=== PATIENT | male | born 1955 | race Caucasian/White ===

== ENCOUNTER 2020-08-21 11:09 | IRF | payer MEDICARE, MEDICAID, SELFPAY ==
--- NOTE | ~2020-08-21 | CT_ITS ---
EXAMINATION: CT brain wo con EXAM DATE: 08/24/2020 14:30 INDICATION: Visual changes. TECHNIQUE: Spiral CT of the head was performed without contrast. Axial, coronal and sagittal images were reviewed. The dose-length product (DLP) for this examination was 605.33 mGy-cm. The exposure w as tailored according to patient size, and iterative reconstruction (ASIR) was used as additional dos e reduction technique. There is no prior study for comparison. FINDINGS: There is no acute intraparenchymal hemorrhage. No evidence of intraparenchymal brain mass lesion. No evidence of acute infarction. Please note that initial head CT has limited sensitivity f or small or acute infarctions. There is mild periventricular and subcortical hypodensity, nonspecific but probably related to small vessel ischemic disease. There is ventricular prominence out of prop ortion to sulci which is suspected most likely central atrophy rather than hydrocephalus. Normal pre ssure hydrocephalus cannot be excluded (clinical triad ataxia/gait disturbance, dementia, urinary inc ontinence). There is intracranial carotid arteriosclerosis. There are no extra-axial collections. There is no mass effect or midline shift. Patient has had bilateral ocular lens surgery. Soft tiss ue is unremarkable. The visualized sinuses and mastoid air cells are well aerated. IMPRESSION: 1. No acute intracranial findings. 2. Chronic age related findings. Reviewed, dictated and finalized at location B. 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
--- NOTE | ~2020-08-21 | XR_ITS ---
EXAMINATION: XR abdomen/kub 1V EXAM DATE: 08/22/2020 15:46 INDICATION: Diarrhea with lower right quadrant pain. TECHNIQUE: Frontal projection(s) of the abdomen for interpretation. There is no prior study for reji webb. FINDINGS: There is moderate amount of colonic stool and gas. No small bowel dilation, nonobstructiv e bowel gas pattern. There are no suspicious calcifications identified. There is no organomegaly suspected. Mild to moderate bony degenerative changes. Lung bases unremarkable. Cardiac a stomach/A ICD lead. Sternotomy wires. IMPRESSION: Unremarkable abdomen x-ray exam. Reviewed, dictated and finalized at location B. 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
--- NOTE | ~2020-08-21 | XR_ITS ---
EXAMINATION: XR wrist RT 2V DATE: 08/27/2020 13:09 INDICATION: Right wrist pain and swelling TECHNIQUE: Posteroanterior and lateral views of the right wrist were obtained. COMPARISON: none FINDINGS: Bone alignment is normal. Likely old healed fracture of the fifth metacarpal diaphysis. No acute frac ture. Mild osteoarthritis characterized by mild nonuniform joint space narrowing and/or small margina l osteophytes at the first carpometacarpal and several interphalangeal joints. Soft tissue swelling a long the dorsal/ulnar aspect of the right wrist and carpus. IMPRESSION: 1. Mild polyarticular osteoarthritis at the right hand. No acute osseous abnormality. Reviewed, dictated and finalized at location B. IMPRESSION: 1. Mild polyarticular osteoarthritis at the right hand. No acute osseous abnorm ality.
--- NOTE | 2020-08-21 11:16 | ADMGEN ---
This patient, Salvatore Elmore, was admitted to [facility] Room 222-01. Patient/family oriented to hospital policies and general routines including ID bracelet, bed and alarms, visiting hours, pain management, procedures, bathroom and other care routines, personal items, smoking policy, room service/diet, and visiting hours. Information on how to activate the Rapid Response Team has been discussed. Patient/Family are encouraged to report perceived risks to care and to ask questions if they do not understand what they are told or what they should do.
[2020-08-21 11:39] VITALS: BMI 36.3
[2020-08-21 11:40] VITALS: BP 95/59; PULSE 79; RESP 18; TEMP 35.9; O2SAT 97
[2020-08-21 12:31] LABS: Glucose Point of Care 151 (65-105)
[2020-08-21] MEDS: HEPARIN SODIUM 5,000 UNITS/ML VIAL 5000 UNITS SUB-Q ×2 (14:00→21:13)
--- NOTE | 2020-08-21 16:05 | WPDREHABHP ---
H&P: HPI History of Present Illness Date/Time: 08/21/20 16:05HISTORY OF PRESENT ILLNESS: The patient's primary rehab impairment category is amputation lower extremity The etiologic diagnosis is right lower extremity Charcot foot with nonhealing wound status post right below the knee amputation I saw this patient [id number] on 08/21/2020 4:08 p.m. The patient is a 64-year-old male with known medical history of hypertension, coronary artery disease status post CABG in 01/2017, diabetes mellitus with peripheral neuropathy and retinopathy, peripheral arterial disease with multiple interventions, right Charcot foot with nonhealing ulcers. Patient had a recent hospitalization in May of 2020 for acute heart failure, diabetic foot ulcer with MSSA bacteremia, right foot abscess with osteomyelitis. He was discharged on 05/31/2020 on IV ceftriaxone 2 g daily times 42 days to end on 07/12/2020. Patient presented to [facility] on 08/06/2020 with severe right foot pain was found to have an ulcer on the dorsal aspect of the right foot that was nonhealing. Patient was also found to have volume overload with bibasilar crackles, scrotal swelling and bilateral lower extremity swelling. Patient developed acute on chronic kidney injury with creatinine elevated to 1.7. He was started on IV Lasix 80 mg b.i.d.. Right foot x-ray showed lucency and destruction of the base of the 5th metatarsal compatible with progressive osteomyelitis and cellulitis. Dr. Ram was consulted and placed the patient on IV vancomycin and Unasyn. Right lower extremity CT revealed progression of the osteomyelitis to the 4th and 5th tarsometatarsal articulation and metatarsal bones. Podiatry and vascular surgeons were consulted on the patient agreed on surgical intervention. On 08/12/2020 his blood culture showed no growth at day 5. Wound cultures grew Pseudomonas aeruginosa is. Patient was then switched to IV cefepime and Unasyn was discontinued. On 08/14/2020 the patient underwent a right below-knee amputation by Dr. Sutton postoperatively patient had acute postop pain, acute blood loss anemia, hypokalemia, hyponatremia, hyperglycemia, acute on chronic kidney disease, lower extremity edema and volume overload, episodes of hypotension, constipation. Blood pressures have been running on the low side of 95/60 and has been managed with medication LDL was suboptimally controlled and add Avastin was increased to 80 mg daily Hemoglobin A1c is 6.6. Patient is being discharged on aspirin and Plavix for the DVT prophylaxis until assessed further after rehab COVID: The patient has not traveled outside the [place] or had contact with someone who is ill and his travel outside the [place] in the past 21 days. Patient has not traveled to an area of the [place] that his experiencing no transmission of the Coronavirus and has not had close personal contact with anyone that has. The patient does not have a fever. The patient is not experiencing lower respiratory illness symptoms. The patient does however have COPD and asthma at baseline the patient tested negative for COVID on 08/13/2020 therapy was initiated the acute care facility and the patient transferred to us from the [facility] on 08/21/2020 Therapy was initiated at the acute care facility and the patient transferred to us from [facility] on FALLS OR SURGERIES: The patient has had major surgeries in the 100 days prior to admission. They had no falls in the past year. They had no falls with injury in the past year. PAST MEDICAL HISTORY: cardiomyopathy, coronary artery disease status post CABG on 02/01/2017, hypertension, diabetes mellitus type 2, diabetic retinopathy, diabetic neuropathy, peripheral arterial disease with multiple interventions, right Charcot foot with ulcer, impaired left ventricular systolic function secondary to ischemic cardiomyopathy with ejection fraction of 25-30
[2020-08-21 16:28] LABS: Glucose Point of Care 152 (65-105)
[2020-08-21 16:50] LABS: Glucose Point of Care 153 (65-105)
[2020-08-21] MEDS: ISOSORBIDE DINITRATE 10 MG TABLET PO (17:06)
[2020-08-21] MEDS: FUROSEMIDE 80 MG TABLET PO (17:07)
[2020-08-21 20:32] VITALS: BP 114/65; PULSE 92; RESP 24; TEMP 36.5; O2SAT 96
[2020-08-21 20:33] VITALS: PULSE 96
[2020-08-21] MEDS: METOPROLOL TARTRATE 50 MG TAB PO (20:33)
[2020-08-21] MEDS: PREGABALIN (*CRX) 75 MG CAPSULE 150 MG PO (20:36)
[2020-08-21 20:48] LABS: Glucose Point of Care 190 (65-105)
[2020-08-22 04:52] LABS: Basophils Absolute Auto 0.1 K/mm3 (0.0-0.1); Basophils Percent Auto 0.4 % (0.2-1.2); Eosinophils Absolute Auto 0.4 K/mm3 (0-0.3); Hematocrit 33.2 % (42.0-52.0); Hemoglobin 10.8 g/dL (14.0-18.0); Immature Granulocyte Absolute 0.14 K/mm3 (0.00-0.031); Lymphocytes Absolute Auto 1.78 K/mm3 (0.9-3.2); Lymphocytes Percent Auto 13.2 % (18.3-44.2); Mean Corpuscular HGB Conc 32.5 g/dl (32-36); Mean Corpuscular Hemoglobin 24.7 pg (26-34); Mean Corpuscular Volume 75.8 fl (80-100); Monocytes Absolute Auto 1.3 K/mm3 (0.1-0.6); Monocytes Percent Auto 9.4 % (2.6-8.5); Neutrophils Absolute Auto 9.8 K/mm3 (1.3-6.7); Platelet Count Result 392 k/mm3 (150-375); Red Blood Count 4.38 M/mm3 (4.6-6.20); Red Cell Distribution Width 16.2 % (11.5-14.5); White Blood Count 13.5 K/mm3 (4.5-10.0)
[2020-08-22 05:14] LABS: Alanine Aminotransferase 15 U/L (4-50); Albumin Level 3.8 g/dL (3.5-5.1); Alkaline Phosphatase 98 U/L (38-126); Anion Gap 7 mmol/L (8-16); Aspartate Amino Transferase 25 U/L (17-59); Bilirubin,Total 0.6 mg/dL (0.2-1.3); Blood Urea Nitrogen 47 mg/dL (9-20); Calcium 9.3 mg/dL (8.4-10.2); Carbon Dioxide 33 mmol/L (22-30); Chloride 91 mmol/L (98-107); Estimated CRCL calculation 63 ml/min; Estimated Glomerular Filt Rate 56; Glucose 140 mg/dL (75-110); Potassium 3.8 mmol/L (3.4-5.0); Sodium 131 mmol/L (137-145)
[2020-08-22 06:00] VITALS: BP 108/64; PULSE 80; RESP 18; TEMP 36.8; O2SAT 96
[2020-08-22] MEDS: HEPARIN SODIUM 5,000 UNITS/ML VIAL 5000 UNITS SUB-Q ×3 (06:00→21:06)
[2020-08-22 06:11] LABS: Glucose Point of Care 137 (65-105)
[2020-08-22 08:16] VITALS: PULSE 80
[2020-08-22] MEDS: ASPIRIN 81 MG ENTERIC TABLET PO (08:16)
[2020-08-22] MEDS: lisinopriL 5 MG TABLET PO (08:16)
[2020-08-22] MEDS: FAMOTIDINE 20 MG TABLET PO (08:16)
[2020-08-22] MEDS: FUROSEMIDE 80 MG TABLET PO (08:16)
[2020-08-22] MEDS: METOPROLOL TARTRATE 50 MG TAB PO ×2 (08:16→21:05)
[2020-08-22] MEDS: SPIRONOLACTONE 25 MG TABLET PO (08:16)
[2020-08-22] MEDS: CLOPIDOGREL BISULFATE 75 MG TABLET PO (08:16)
[2020-08-22] MEDS: ATORVASTATIN 40 MG TABLET 80 MG PO (08:17)
[2020-08-22] MEDS: ACETAMINOPHEN 325 MG TABLET 650 MG PO ×2 (08:54→18:33)
[2020-08-22] MEDS: ISOSORBIDE DINITRATE 10 MG TABLET PO ×2 (09:57→16:52)
[2020-08-22 10:47] VITALS: BMI 36.3
[2020-08-22] MEDS: TOLNAFTATE 1% POWDER 45 GM BTL 1 APPLIC TOPICAL ×2 (10:48→21:06)
--- NOTE | 2020-08-22 11:35 | PCNSR ---
On 08/22/20, the student, Tonya Cohn, provided care and [facility]. I have reviewed the student's documentation and agree with the findings.
[2020-08-22 11:48] LABS: Glucose Point of Care 196 (65-105)
[2020-08-22 13:00] VITALS: BMI 10.0
[2020-08-22 14:00] VITALS: BP 101/55; PULSE 82; RESP 20; TEMP 36.4; O2SAT 98
--- NOTE | 2020-08-22 14:37 | WPDNEURORHBP ---
Subjective Date/time seen: 08/22/20 14:37 Patient has been seen throughout the day. At noon today patient was experiencing right visual blurriness and dizziness Review of Systems Review of Systems: All systems reviewed & are unremarkable except as noted in HPI and below Functional Status Transfers Ability Ability to Transfer In/Out of Chair: Maximum Assistance X 2 Exam Narrative: Exam Narrative: Patient demonstrates right eye ptosis this was present on admit.. External ocular muscles are intact. pupils are react to light and accommodation. Neck is supple. Speech is fluent. heart rate and rhythm is regular. Lungs are clear to auscultation abdomen is soft positive bowel sounds bilateral upper extremity strength revealed bilateral rotator cuff arthropathy. Distal strength is 4-. Left lower extremity strength reveals proximal weakness of 3+ knee 3+ ankle 3+. Left lower extremity fatigues quickly. During stance phase left lower extremity is in flexion at the hip and knee. Patient is unable to fully extend left lower extremity to assist with standing. Right stump was visualized today. Multiple sutures were present. Approximation of incision was not present at the midline of the incision. transfers are max assistance 2 to moderate assistance of 2 no gait has been attempted Objective Data Vital Signs Vital Signs: Vital Signs - 24 hr 08/21/20 20:32 08/21/20 20:33 08/22/20 06:00 Temperature 36.5 C 36.8 C Pulse Rate 92 96 80 Respiratory Rate 24 H 18 Blood Pressure 114/65 108/64 Pulse Oximetry 96 96 08/22/20 08:16 08/22/20 14:00 Temperature 36.4 C L Pulse Rate 80 82 Respiratory Rate 20 Blood Pressure 101/55 L Pulse Oximetry 98 Intake/Output Intake/Output: Intake & Output 08/19/20 08/20/20 08/21/20 08/22/20 23:59 23:59 23:59 23:59 Intake Total 240 840 Balance 240 840 Meds/Results Medications: Active Medications Generic Name Dose Route Start Last Admin Trade Name Freq PRN Reason Stop Dose Admin Acetaminophen 650 mg 08/21/20 14:06 08/22/20 08:54 Acetaminophen 325 Mg Tablet PO 650 mg Q6H PRN Administration Fever Or Pain Hydrocodone Bitart/Acetaminophen 2 tab 08/21/20 14:06 Hydrocodone/Acetaminophen (*Crx) 5-325 Mg Tablet PO Q4H PRN Pain, Moderate Aspirin 81 mg 08/22/20 09:00 08/22/20 08:16 Aspirin 81 Mg Enteric Tablet PO 81 mg DAILY [facility] Administration Atorvastatin Calcium 80 mg 08/22/20 09:00 08/22/20 08:17 Atorvastatin 40 Mg Tablet PO 80 mg DAILY [facility] Administration Benzonatate 100 mg 08/21/20 14:06 Benzonatate 100 Mg Capsule PO Q8H PRN Cough Bisacodyl 10 mg 08/21/20 14:06 Bisacodyl 5 Mg Tablet Ec PO DAILY PRN Constipation Clopidogrel Bisulfate 75 mg 08/22/20 09:00 08/22/20 08:16 Clopidogrel Bisulfate 75 Mg Tablet PO 75 mg DAILY [facility] Administration Dextrose 12.5 gm 08/21/20 14:07 Dextrose 50% 25 Gm/50 Ml Syringe IV PUSH PRN PRN Hypoglycemia Protocol Docusate Sodium 100 mg 08/21/20 14:06 Docusate Sodium 100 Mg Capsule PO Q12H PRN Constipation Famotidine 20 mg 08/22/20 09:00 08/22/20 08:16 Famotidine 20 Mg Tablet PO 20 mg DAILY [facility]UC Administration Furosemide 80 mg 08/21/20 17:00 08/22/20 08:16 Furosemide 80 Mg Tablet PO 80 mg BID [facility] Administration Glucagon 1 mg 08/21/20 14:07 Glucagon For Inj 1 Mg Vial IM PRN PRN Hypoglycemia Protocol Glucose 15 gm 08/21/20 14:07 Glucose Oral Gel 15 Gm Of Glucse In 37.5 Gm Tube PO PRN PRN Hypoglycemia Protocol Heparin Sodium (Porcine) 5,000 units 08/21/20 14:00 08/22/20 14:20 Heparin Sodium 5,000 Units/Ml Vial SUB-Q 5,000 units Q8HR PHUC Administration Dextrose 1,000 mls @ 100 mls/hr 08/21/20 14:07 Dextrose 5% 1,000 Ml IVPB PRN PRN Hypoglycemia Protocol Insulin Aspart 4 - 8 units 08/21/20 17:00 08/22
[2020-08-22 15:36] LABS: Anion Gap 9 mmol/L (8-16); Blood Urea Nitrogen 51 mg/dL (9-20); Calcium 8.7 mg/dL (8.4-10.2); Carbon Dioxide 32 mmol/L (22-30); Chloride 90 mmol/L (98-107); Estimated CRCL calculation 59 ml/min; Estimated Glomerular Filt Rate 51; Glucose 175 mg/dL (75-110); Potassium 4.1 mmol/L (3.4-5.0); Sodium 131 mmol/L (137-145)
[2020-08-22 16:44] LABS: Glucose Point of Care 188 (65-105)
[2020-08-22 20:00] VITALS: PULSE 98; RESP 16; O2SAT 96
[2020-08-22 21:05] VITALS: PULSE 99
[2020-08-22] MEDS: PREGABALIN (*CRX) 75 MG CAPSULE 150 MG PO (21:06)
[2020-08-22 21:34] VITALS: BP 141/85; PULSE 98; RESP 16; TEMP 36.3; O2SAT 96
[2020-08-22 22:16] LABS: Glucose Point of Care 212 (65-105)
[2020-08-23] VITALS (7 sets, daily range): BP systolic 93–124; BP diastolic 47–70; PULSE 78–96; RESP 18–20; TEMP 35.9–36.2; O2SAT 97–100
[2020-08-23] MEDS: HEPARIN SODIUM 5,000 UNITS/ML VIAL 5000 UNITS SUB-Q ×3 (05:15→21:14)
[2020-08-23 06:59] LABS: Glucose Point of Care 157 (65-105)
[2020-08-23] MEDS: ACETAMINOPHEN 325 MG TABLET 650 MG PO ×2 (07:55→16:55)
[2020-08-23] MEDS: ATORVASTATIN 40 MG TABLET 80 MG PO (08:35)
[2020-08-23] MEDS: METOPROLOL TARTRATE 50 MG TAB PO ×2 (08:36→21:13)
[2020-08-23] MEDS: FAMOTIDINE 20 MG TABLET PO (08:37)
[2020-08-23] MEDS: lisinopriL 5 MG TABLET PO (08:37)
[2020-08-23] MEDS: FUROSEMIDE 80 MG TABLET PO (08:37)
[2020-08-23] MEDS: SPIRONOLACTONE 25 MG TABLET PO (08:37)
[2020-08-23] MEDS: CLOPIDOGREL BISULFATE 75 MG TABLET PO (08:37)
[2020-08-23] MEDS: ASPIRIN 81 MG ENTERIC TABLET PO (08:38)
[2020-08-23] MEDS: ISOSORBIDE DINITRATE 10 MG TABLET PO ×2 (08:38→16:55)
[2020-08-23] MEDS: polyethylene glycoL 3350 17 GM POWD.PACK PO (08:38)
[2020-08-23] MEDS: TOLNAFTATE 1% POWDER 45 GM BTL 1 APPLIC TOPICAL ×2 (08:41→21:18)
--- NOTE | 2020-08-23 09:22 | RPD ---
INDIVIDUALIZED PLAN OF CARE FOR Salvatore Elmore Brief Synthesis of Pre-Admission Screen, Post-Admission Evaluation and Therapy Evaluations: The patient presents to rehab with right LE Charcot foot with non-healing wound s/p right [id number] amputation. Comorbidities include osteomyelitis right foot, cardiomyopathy, CAD s/p CABGx4, systolic heart failure with EF 25-30%, CHF, hypertension, diabetes mellitus type 2, peripheral arterial disease, defibrillator placement, scrotal edema, renal insufficiency, hyperlipidemia, defibrillator placement, scrotal edema, mitral valve regurgitation, asthma, COPD, obstructive sleep apnea (noncompliant w/CPAP), hepatitis, chronic kidney disease, enlarged prostate, prostate cancer, osteoarthritis, rheumatoid arthritis, diabetic peripheral neuropathy, obesity, acute kidney injury, and constipation. The complexity of the patient's medical management, nursing, and therapy needs require an inpatient rehab hospital stay with a physician-led interdisciplinary team approach. The patient?s needs will be best met in an intensive program vs. at a lower level of care. The patient requires physician services for medical oversight, management of post-op complications in the setting of present comorbidities, and pain management. Post-op complications have included acute postoperative pain, acute blood loss anemia, hypokalemia, hyponatremia, hyperglycemia, acute kidney injury in the setting of chronic kidney disease, LE edema/volume overload, and episodes of hypotension. The patient requires nursing services for anticoagulation therapy, diabetes training, DVT prophylactics, possible IV administration, infection protection, medication management and education, pressure relief, and wound care. Deficits include:24-Hour Rehab Nursing Care, Nutrition Services, Occupational Therapy, Physical Therapy, Physician, Prosthetics/Orthotics, Respiratory Therapy, [employer], and Wound Care. [employer]/Case Management for: Discharge Planning and Patient/Family Counseling Physical Therapy: 5 days per week for 90 minutes. Treatments may include: Therapeutic Exercise, Gait Training, Neuromuscular Re-education, Transfer Training, Community Reintegration, Bed Mobility, Patient/Family Education, Wheelchair Mobility Group Therapy/Concurrent Therapy Rationales: -Improve attention span during functional activities in a distracted environment. -Enhance problem solving and/or adequate judgment skills during functional activities in a distracted environment. -Promote increased safety awareness in a distracted environment to reduce fall risk with functional tasks, transfers, and ambulation to allow a more safe, self-sufficient return to the home environment. -Improve dynamic balance skills to promote safety and independence with functional activities in a distracted environment for maximum gain. Occupational Therapy: 5 days per week for 90 minutes. Treatments may include: Therapeutic Exercise, Therapeutic Activity, Cognitive Training, Self-Care Transfer Training, Community Reintegration, Home Management, Patient/Family Education, Wheelchair Mobility Training, Energy Conservation Training Group Therapy/Concurrent Therapy Rationales: -Allow therapist to observe and teach generalization and carry-over of skills learned in individual therapy. -Enhance problem solving and sequencing skills during therapeutic activities in a distracted environment. -Promote increased safety awareness in a realistic setting to reduce fall risk with functional tasks due to visual and verbal distractions. -Increase functional level with ADLs, ADL transfers and use of adaptive equipment through therapeutic activities with others while promoting safety to allow a more safe, self-sufficient return home. Medical Prognosis: Good Anticipated Length of Stay: 14 days Rehab Goals: Eating Goal: 06-Independent Oral Hygiene Goal: 06-Independent Toileting Hygiene Goal: 03-Partial/Moderate Assistance
--- NOTE | 2020-08-23 10:15 | WPDNEURORHBP ---
Subjective Date/time seen: 08/23/20 10:15 Review of Systems Review of Systems: All systems reviewed & are unremarkable except as noted in HPI and below Constitutional: Constitutional: Reports weakness Genitourinary: Genitourinary: Reports as per HPI Musculoskeletal: Musculoskeletal: Reports atrophy and Reports muscle weakness Neurologic: Reports system reviewed and no additional complaints, except as documented and Reports weakness Functional Status Transfers Ability Ability to Transfer In/Out of Chair: Maximum Assistance X 2 Exam Narrative: Exam Narrative: Patient demonstrates right eye ptosis this was present on admit.. External ocular muscles are intact. pupils are react to light and accommodation. Neck is supple. Speech is fluent. heart rate and rhythm is regular. Lungs are clear to auscultation abdomen is soft positive bowel sounds bilateral upper extremity strength revealed bilateral rotator cuff arthropathy. Distal strength is 4-. Left lower extremity strength reveals proximal weakness of 3+ knee 3+ ankle 3+. Left lower extremity fatigues quickly. During stance phase left lower extremity is in flexion at the hip and knee. Patient is unable to fully extend left lower extremity to assist with standing. Right stump was visualized today. Multiple sutures were present. Approximation of incision was not present at the midline of the incision. transfers are max assistance 2 to moderate assistance of 2 no gait has been attempted Objective Data Vital Signs Vital Signs: Vital Signs - 24 hr 08/22/20 14:00 08/22/20 20:00 08/22/20 21:05 Temperature 36.4 C L Pulse Rate 82 98 99 Respiratory Rate 20 16 Blood Pressure 101/55 L Pulse Oximetry 98 96 08/22/20 21:34 08/23/20 06:00 08/23/20 08:36 Temperature 36.3 C L 36.1 C L Pulse Rate 98 88 88 Respiratory Rate 16 20 Blood Pressure 141/85 H 117/70 Pulse Oximetry 96 97 Intake/Output Intake/Output: Intake & Output 08/20/20 08/21/20 08/22/20 08/23/20 23:59 23:59 23:59 23:59 Intake Total 240 1200 240 Balance 240 1200 240 Meds/Results Medications: Active Medications Generic Name Dose Route Start Last Admin Trade Name Freq PRN Reason Stop Dose Admin Acetaminophen 650 mg 08/21/20 14:06 08/23/20 07:55 Acetaminophen 325 Mg Tablet PO 650 mg Q6H PRN Administration Fever Or Pain Hydrocodone Bitart/Acetaminophen 2 tab 08/21/20 14:06 Hydrocodone/Acetaminophen (*Crx) 5-325 Mg Tablet PO Q4H PRN Pain, Moderate Aspirin 81 mg 08/22/20 09:00 08/23/20 08:38 Aspirin 81 Mg Enteric Tablet PO 81 mg DAILY [facility] Administration Atorvastatin Calcium 80 mg 08/22/20 09:00 08/23/20 08:35 Atorvastatin 40 Mg Tablet PO 80 mg DAILY [facility] Administration Benzonatate 100 mg 08/21/20 14:06 Benzonatate 100 Mg Capsule PO Q8H PRN Cough Bisacodyl 10 mg 08/21/20 14:06 Bisacodyl 5 Mg Tablet Ec PO DAILY PRN Constipation Clopidogrel Bisulfate 75 mg 08/22/20 09:00 08/23/20 08:37 Clopidogrel Bisulfate 75 Mg Tablet PO 75 mg DAILY [facility] Administration Dextrose 12.5 gm 08/21/20 14:07 Dextrose 50% 25 Gm/50 Ml Syringe IV PUSH PRN PRN Hypoglycemia Protocol Docusate Sodium 100 mg 08/21/20 14:06 Docusate Sodium 100 Mg Capsule PO Q12H PRN Constipation Famotidine 20 mg 08/22/20 09:00 08/23/20 08:37 Famotidine 20 Mg Tablet PO 20 mg DAILY [facility]UC Administration Furosemide 80 mg 08/23/20 09:00 08/23/20 08:37 Furosemide 80 Mg Tablet PO 80 mg DAILY [facility] Administration Glucagon 1 mg 08/21/20 14:07 Glucagon For Inj 1 Mg Vial IM PRN PRN Hypoglycemia Protocol Glucose 15 gm 08/21/20 14:07 Glucose Oral Gel 15 Gm Of Glucse In 37.5 Gm Tube PO PRN PRN Hypoglycemia Protocol Heparin Sodium (Porcine) 5,000 units 08/21/20 14:00 08/23/20 05:15 Heparin Sodium 5,000 Units/Ml Vial SUB-Q 5,00
[2020-08-23 11:51] LABS: Glucose Point of Care 190 (65-105)
[2020-08-23 13:09] LABS: Basophils Absolute Auto 0.1 K/mm3 (0.0-0.1); Basophils Percent Auto 0.5 % (0.2-1.2); Eosinophils Absolute Auto 0.5 K/mm3 (0-0.3); Eosinophils Percent Auto 3.5 % (0-4.4); Hematocrit 33.1 % (42.0-52.0); Hemoglobin 10.6 g/dL (14.0-18.0); Immature Granulocyte Absolute 0.14 K/mm3 (0.00-0.031); Lymphocytes Absolute Auto 1.62 K/mm3 (0.9-3.2); Lymphocytes Percent Auto 11.4 % (18.3-44.2); Mean Corpuscular Hemoglobin 25.1 pg (26-34); Mean Corpuscular Volume 78.3 fl (80-100); Mean Platelet Volume 11.4 fl (7.4-10.4); Monocytes Absolute Auto 1.2 K/mm3 (0.1-0.6); Monocytes Percent Auto 8.6 % (2.6-8.5); Neutrophils Absolute Auto 10.7 K/mm3 (1.3-6.7); Platelet Count Result 447 k/mm3 (150-375); Red Blood Count 4.23 M/mm3 (4.6-6.20); Red Cell Distribution Width 16.5 % (11.5-14.5); White Blood Count 14.2 K/mm3 (4.5-10.0)
[2020-08-23 13:32] LABS: Alanine Aminotransferase 19 U/L (4-50); Albumin Level 3.8 g/dL (3.5-5.1); Alkaline Phosphatase 90 U/L (38-126); Anion Gap 10 mmol/L (8-16); Aspartate Amino Transferase 30 U/L (17-59); Bilirubin,Total 0.5 mg/dL (0.2-1.3); Blood Urea Nitrogen 45 mg/dL (9-20); Calcium 9.1 mg/dL (8.4-10.2); Carbon Dioxide 29 mmol/L (22-30); Chloride 94 mmol/L (98-107); Estimated CRCL calculation 74 ml/min; Estimated Glomerular Filt Rate > 60; Glucose 213 mg/dL (75-110); Potassium 3.9 mmol/L (3.4-5.0); Sodium 133 mmol/L (137-145)
--- NOTE | 2020-08-23 14:09 | WPDNEURORHBP ---
Subjective Date/time seen: 08/23/20 14:09 patient complains of blurred vision to the right eye. Patient is inconsistent with his responses since admission. Review of Systems Review of Systems: Narrative: Patient missed to blurred vision of the right eye and ongoing dizziness. Patient denies chest pain or shortness of breath. Patient continues to have complaints of incontinence of bowel. Functional Status Transfers Ability Ability to Transfer In/Out of Chair: Maximum Assistance X 2 Exam Narrative: Exam Narrative: Head is normocephalic right eye ptosis fluctuates throughout the day. Cognition is variable. Will seek speech evaluation for cognition. Speech is fluent. Heart rate and rhythm is regular. Lungs are clear to auscultation. Abdomen is obese with positive bowel sounds and incontinence of bowel. Bilateral upper extremity strength are 4+ out of 5 and left lower extremity strength is 5/5. During functional transfers patient has poor body awareness and does not utilize his upper extremities or his left lower extremities to assist in sliding board transfers. Sitting balance is good. Objective Data Vital Signs Vital Signs: Vital Signs - 24 hr 08/22/20 20:00 08/22/20 21:05 08/22/20 21:34 Temperature 36.3 C L Pulse Rate 98 99 98 Respiratory Rate 16 16 Blood Pressure 141/85 H Pulse Oximetry 96 96 08/23/20 06:00 08/23/20 08:36 08/23/20 11:00 Temperature 36.1 C L Pulse Rate 88 88 91 Respiratory Rate 20 Blood Pressure 117/70 93/47 L Pulse Oximetry 97 98 Intake/Output Intake/Output: Intake & Output 08/20/20 08/21/20 08/22/20 08/23/20 23:59 23:59 23:59 23:59 Intake Total 240 1200 480 Balance 240 1200 480 Meds/Results Medications: Active Medications Generic Name Dose Route Start Last Admin Trade Name Freq PRN Reason Stop Dose Admin Acetaminophen 650 mg 08/21/20 14:06 08/23/20 07:55 Acetaminophen 325 Mg Tablet PO 650 mg Q6H PRN Administration Fever Or Pain Hydrocodone Bitart/Acetaminophen 2 tab 08/21/20 14:06 Hydrocodone/Acetaminophen (*Crx) 5-325 Mg Tablet PO Q4H PRN Pain, Moderate Aspirin 81 mg 08/22/20 09:00 08/23/20 08:38 Aspirin 81 Mg Enteric Tablet PO 81 mg DAILY [facility] Administration Atorvastatin Calcium 80 mg 08/22/20 09:00 08/23/20 08:35 Atorvastatin 40 Mg Tablet PO 80 mg DAILY [facility] Administration Benzonatate 100 mg 08/21/20 14:06 Benzonatate 100 Mg Capsule PO Q8H PRN Cough Bisacodyl 10 mg 08/21/20 14:06 Bisacodyl 5 Mg Tablet Ec PO DAILY PRN Constipation Clopidogrel Bisulfate 75 mg 08/22/20 09:00 08/23/20 08:37 Clopidogrel Bisulfate 75 Mg Tablet PO 75 mg DAILY [facility]UC Administration Dextrose 12.5 gm 08/21/20 14:07 Dextrose 50% 25 Gm/50 Ml Syringe IV PUSH PRN PRN Hypoglycemia Protocol Docusate Sodium 100 mg 08/21/20 14:06 Docusate Sodium 100 Mg Capsule PO Q12H PRN Constipation Famotidine 20 mg 08/22/20 09:00 08/23/20 08:37 Famotidine 20 Mg Tablet PO 20 mg DAILY [facility]UC Administration Furosemide 80 mg 08/23/20 09:00 08/23/20 08:37 Furosemide 80 Mg Tablet PO 80 mg DAILY [facility] Administration Glucagon 1 mg 08/21/20 14:07 Glucagon For Inj 1 Mg Vial IM PRN PRN Hypoglycemia Protocol Glucose 15 gm 08/21/20 14:07 Glucose Oral Gel 15 Gm Of Glucse In 37.5 Gm Tube PO PRN PRN Hypoglycemia Protocol Heparin Sodium (Porcine) 5,000 units 08/21/20 14:00 08/23/20 05:15 Heparin Sodium 5,000 Units/Ml Vial SUB-Q 5,000 units Q8HR [facility] Administration Dextrose 1,000 mls @ 100 mls/hr 08/21/20 14:07 Dextrose 5% 1,000 Ml IVPB PRN PRN Hypoglycemia Protocol Insulin Aspart 4 - 8 units 08/21/20 17:00 08/23/20 12:00 Insulin Aspart (*Bkc) 100 Units/Ml SUB-Q Not Given TIDWM [facility] Protocol Isosorbide Dinitrate 10 mg 08/21/20 17:00 08/23/20 08:38 Isosorbide
--- NOTE | 2020-08-23 14:35 | WPDNEURCNPN ---
Assessment and Plan Assessment and plan (1) Blurred vision: Code(s): H53.8 - Other visual disturbances Status: Acute Additional Plan complaints of blurred vision over the last 24 hours even though patient has ongoing history of diabetic retinopathy and has been the under the care of the conservation assistant because of the recent complaints MRI of the brain will be obtained to rule out the possibility of silent occipital stroke before any further recommendations are made Consult date: 08/23/20 Time Seen: 14:30 HPI: Salvatore Elmore is a 64 year old male has been admitted to the rehab floor for amputation of left lower extremity in addition to the comorbid conditions of 1. Hypertension 2. Coronary artery disease 3. CABG in January of 2017 4. Diabetes mellitus 5. Peripheral neuropathy and 6. Retinopathy . neuro consultation has been obtained because patient has been complaining over the last 24 to 36 hours somewhat blurred vision Review of Systems Review of Systems: All systems reviewed & are unremarkable except as noted in HPI and below PMFSH Family History Family History Father Acute myocardial infarction Congestive heart failure Hypertension Sibling Acute myocardial infarction Prostate carcinoma Mother Acute myocardial infarction Congestive heart failure Hypertension Other Family history of cardiovascular disease Family history of obesity Social History Social History Smoking status: Never smoker Second hand tobacco smoke exposure: No Alcohol intake: former Substance use: never Substance use type: does not use Spiritual care concerns: No Meds Home Medications and Allergies Home Medications Medication Instructions Recorded Confirmed Type acetaminophen 650 mg PO Q6H PRN 08/21/20 08/21/20 History aspirin 81 mg PO DAILY 08/21/20 08/21/20 History atorvastatin 80 mg PO DAILY 08/21/20 08/21/20 History benzonatate 100 mg PO Q8H PRN 08/21/20 08/21/20 History bisacodyl 10 mg PO DAILY PRN 08/21/20 08/21/20 History clopidogrel 75 mg PO DAILY 08/21/20 08/21/20 History docusate sodium 100 mg PO Q12H PRN 08/21/20 08/21/20 History famotidine 20 mg PO DAILY 08/21/20 08/21/20 History furosemide 80 mg PO BID 08/21/20 08/21/20 History heparin (porcine) 5,000 unit SUBCUT Q8H 08/21/20 08/21/20 History hydrocodone-acetaminophen 2 tablet PO Q4H PRN 08/21/20 08/21/20 History isosorbide dinitrate 10 mg PO BID 08/21/20 08/21/20 History lisinopril 5 mg PO DAILY 08/21/20 08/21/20 History metoprolol tartrate 50 mg PO Q12H 08/21/20 08/21/20 History ondansetron 4 mg PO Q6H PRN 08/21/20 08/21/20 History polyethylene glycol 3350 17 g PO DAILY PRN 08/21/20 08/21/20 History pregabalin 150 mg PO HS 08/21/20 08/21/20 History spironolactone 25 mg PO DAILY 08/21/20 08/21/20 History Allergies Allergy/AdvReac Type Severity Reaction Status Date / Time Sulfa (Sulfonamide Allergy Unknown Verified 08/21/20 11:20 Antibiotics) sulfamethoxazole Allergy Unknown Verified 08/21/20 18:42 [From Bactrim] trimethoprim [From Bactrim] Allergy Unknown Verified 08/21/20 18:42 Vital Signs Vital Signs - 24 hr 08/22/20 20:00 08/22/20 21:05 08/22/20 21:34 Temperature 36.3 C L Pulse Rate 98 99 98 Respiratory Rate 16 16 Blood Pressure 141/85 H Pulse Oximetry 96 96 08/23/20 06:00 08/23/20 08:36 08/23/20 11:00 Temperature 36.1 C L Pulse Rate 88 88 91 Respiratory Rate 20 Blood Pressure 117/70 93/47 L Pulse Oximetry 97 98 Exam Const: General: cooperative, healthy appearing, comfortable, no acute distress, alert and awake Nutritional Appearance: well nourished and overweight Orientation/consciousness: patient oriented x3 Limitations: physical limitations ( left lower extremity amputee) HENMT: Head: normocephalic Ears: hearing grossly normal bilaterally General nose exam: Normal external nose present
[2020-08-23 16:51] LABS: Glucose Point of Care 159 (65-105)
[2020-08-23 20:49] LABS: Glucose Point of Care 206 (65-105)
[2020-08-23] MEDS: PREGABALIN (*CRX) 75 MG CAPSULE 150 MG PO (21:14)
[2020-08-24 04:57] LABS: Basophils Absolute Auto 0.1 K/mm3 (0.0-0.1); Basophils Percent Auto 0.6 % (0.2-1.2); Eosinophils Absolute Auto 0.4 K/mm3 (0-0.3); Eosinophils Percent Auto 4.5 % (0-4.4); Hematocrit 31.9 % (42.0-52.0); Hemoglobin 10.2 g/dL (14.0-18.0); Immature Granulocyte Absolute 0.11 K/mm3 (0.00-0.031); Immature Granulocyte Percent A 1.2 % (0-0.5); Lymphocytes Absolute Auto 1.52 K/mm3 (0.9-3.2); Mean Corpuscular Hemoglobin 24.8 pg (26-34); Mean Corpuscular Volume 77.4 fl (80-100); Mean Platelet Volume 10.7 fl (7.4-10.4); Monocytes Absolute Auto 0.9 K/mm3 (0.1-0.6); Monocytes Percent Auto 9.3 % (2.6-8.5); Neutrophils Absolute Auto 6.5 K/mm3 (1.3-6.7); Neutrophils Percent Auto 68.4 % (45.5-73.1); Platelet Count Result 381 k/mm3 (150-375); Red Blood Count 4.12 M/mm3 (4.6-6.20); Red Cell Distribution Width 16.1 % (11.5-14.5); White Blood Count 9.5 K/mm3 (4.5-10.0)
[2020-08-24] MEDS: HEPARIN SODIUM 5,000 UNITS/ML VIAL 5000 UNITS SUB-Q ×3 (05:08→21:14)
[2020-08-24 05:11] LABS: Anion Gap 7 mmol/L (8-16); Blood Urea Nitrogen 42 mg/dL (9-20); Calcium 8.6 mg/dL (8.4-10.2); Carbon Dioxide 31 mmol/L (22-30); Chloride 98 mmol/L (98-107); Estimated CRCL calculation 74 ml/min; Estimated Glomerular Filt Rate > 60; Glucose 160 mg/dL (75-110); Potassium 3.9 mmol/L (3.4-5.0); Sodium 136 mmol/L (137-145)
[2020-08-24 05:30] VITALS: BP 127/77; PULSE 91; RESP 16; TEMP 35.8; O2SAT 99
[2020-08-24 06:26] LABS: Glucose Point of Care 171 (65-105)
[2020-08-24] MEDS: ATORVASTATIN 40 MG TABLET 80 MG PO (09:26)
[2020-08-24] MEDS: FUROSEMIDE 20 MG TABLET 60 MG PO (09:26)
[2020-08-24] MEDS: ASPIRIN 81 MG ENTERIC TABLET PO (09:26)
[2020-08-24 09:27] VITALS: PULSE 91
[2020-08-24] MEDS: SPIRONOLACTONE 25 MG TABLET PO (09:27)
[2020-08-24] MEDS: METOPROLOL TARTRATE 50 MG TAB PO ×2 (09:27→21:10)
[2020-08-24] MEDS: FAMOTIDINE 20 MG TABLET PO (09:27)
[2020-08-24] MEDS: CLOPIDOGREL BISULFATE 75 MG TABLET PO (09:27)
[2020-08-24] MEDS: ISOSORBIDE DINITRATE 10 MG TABLET PO ×2 (09:27→17:32)
[2020-08-24] MEDS: DIPHENHYDRAMINE 1%/ZINC 0.1% CREAM 30 GM TUBE 1 APPLIC TOPICAL (09:28)
[2020-08-24] MEDS: TOLNAFTATE 1% POWDER 45 GM BTL 1 APPLIC TOPICAL ×2 (09:28→21:16)
[2020-08-24 12:00] LABS: Glucose Point of Care 187 (65-105)
[2020-08-24] MEDS: ACETAMINOPHEN 325 MG TABLET 650 MG PO ×2 (12:03→21:01)
--- NOTE | 2020-08-24 13:10 | WPDNEURORHBP ---
Subjective Date/time seen: 08/24/20 13:10 patient has been seen numerous times during the day. Patient's overall endurance is improving. Review of Systems Review of Systems: All systems reviewed & are unremarkable except as noted in HPI and below Musculoskeletal: Comments: Patient complains of some pain currently being treated with Tylenol Functional Status Transfers Ability Ability to Transfer In/Out of Chair: Maximum Assistance X 2 Exam Narrative: Exam Narrative: patient's head is normocephalic right eye ptosis varies throughout the day depending on fatigue. Speech is fluent. Heart rate and rhythm is regular. Lungs are clear to auscultation. Abdomen is obese. Bilateral rotator cuff arthropathy is noted. Upper extremity strength is roughly 4/5. Fine motor dexterity is limited. Transfers are mod/ max of 2. Overall endurance is fair minus. Barriers are obesity, deconditioning, poor body awareness, lower extremity neuropathy. Objective Data Vital Signs Vital Signs: Vital Signs - 24 hr 08/23/20 14:00 08/23/20 20:10 08/23/20 21:13 Temperature 36.2 C L Pulse Rate 78 86 96 Respiratory Rate 18 18 Blood Pressure 105/61 Pulse Oximetry 100 100 08/23/20 21:42 08/24/20 05:30 08/24/20 09:27 Temperature 35.9 C L 35.8 C L Pulse Rate 86 91 91 Respiratory Rate 18 16 Blood Pressure 124/68 127/77 Pulse Oximetry 100 99 Intake/Output Intake/Output: Intake & Output 08/21/20 08/22/20 08/23/20 08/24/20 23:59 23:59 23:59 23:59 Intake Total 240 1200 720 480 Balance 240 1200 720 480 Meds/Results Medications: Active Medications Generic Name Dose Route Start Last Admin Trade Name Freq PRN Reason Stop Dose Admin Acetaminophen 650 mg 08/21/20 14:06 08/24/20 12:03 Acetaminophen 325 Mg Tablet PO 650 mg Q6H PRN Administration Fever Or Pain Hydrocodone Bitart/Acetaminophen 2 tab 08/21/20 14:06 Hydrocodone/Acetaminophen (*Crx) 5-325 Mg Tablet PO Q4H PRN Pain, Moderate Aspirin 81 mg 08/22/20 09:00 08/24/20 09:26 Aspirin 81 Mg Enteric Tablet PO 81 mg DAILY [facility] Administration Atorvastatin Calcium 80 mg 08/22/20 09:00 08/24/20 09:26 Atorvastatin 40 Mg Tablet PO 80 mg DAILY [facility] Administration Benzonatate 100 mg 08/21/20 14:06 Benzonatate 100 Mg Capsule PO Q8H PRN Cough Bisacodyl 10 mg 08/21/20 14:06 Bisacodyl 5 Mg Tablet Ec PO DAILY PRN Constipation Clopidogrel Bisulfate 75 mg 08/22/20 09:00 08/24/20 09:27 Clopidogrel Bisulfate 75 Mg Tablet PO 75 mg DAILY [facility] Administration Dextrose 12.5 gm 08/21/20 14:07 Dextrose 50% 25 Gm/50 Ml Syringe IV PUSH PRN PRN Hypoglycemia Protocol Docusate Sodium 100 mg 08/21/20 14:06 Docusate Sodium 100 Mg Capsule PO Q12H PRN Constipation Famotidine 20 mg 08/22/20 09:00 08/24/20 09:27 Famotidine 20 Mg Tablet PO 20 mg DAILY [facility] Administration Furosemide 60 mg 08/24/20 09:00 08/24/20 09:26 Furosemide 20 Mg Tablet PO 60 mg DAILY [facility] Administration Glucagon 1 mg 08/21/20 14:07 Glucagon For Inj 1 Mg Vial IM PRN PRN Hypoglycemia Protocol Glucose 15 gm 08/21/20 14:07 Glucose Oral Gel 15 Gm Of Glucse In 37.5 Gm Tube PO PRN PRN Hypoglycemia Protocol Heparin Sodium (Porcine) 5,000 units 08/21/20 14:00 08/24/20 05:08 Heparin Sodium 5,000 Units/Ml Vial SUB-Q 5,000 units Q8HR [facility] Administration Dextrose 1,000 mls @ 100 mls/hr 08/21/20 14:07 Dextrose 5% 1,000 Ml IVPB PRN PRN Hypoglycemia Protocol Insulin Aspart 4 - 8 units 08/21/20 17:00 08/24/20 12:03 Insulin Aspart (*Bkc) 100 Units/Ml SUB-Q Not Given TIDWM [facility] Protocol Isosorbide Dinitrate 10 mg 08/21/20 17:00 08/24/20 09:27 Isosorbide Dinitrate 10 Mg Tablet PO 10 mg BID [facility] Administration Lisinopril 5 mg 08/24/20 21:00 Lisinopril 5 Mg Tablet PO BEDTIME S
[2020-08-24 14:00] VITALS: BP 108/63; PULSE 74; RESP 18; TEMP 36.3; O2SAT 100
[2020-08-24 17:13] LABS: Glucose Point of Care 207 (65-105)
[2020-08-24] MEDS: INSULIN ASPART (*BKC) 100 UNITS/ML SUB-Q (17:32)
[2020-08-24 21:04] VITALS: BP 120/72; PULSE 79; RESP 22; TEMP 35.9; O2SAT 98
[2020-08-24] MEDS: lisinopriL 5 MG TABLET PO (21:09)
[2020-08-24 21:10] VITALS: PULSE 79
[2020-08-24] MEDS: PREGABALIN (*CRX) 75 MG CAPSULE 150 MG PO (21:10)
[2020-08-24 21:28] LABS: Glucose Point of Care 225 (65-105)
[2020-08-25 05:03] LABS: Potassium 3.8 mmol/L (3.4-5.0)
[2020-08-25 05:29] VITALS: BP 117/66; PULSE 88; RESP 16; TEMP 35.9; O2SAT 96
[2020-08-25] MEDS: HEPARIN SODIUM 5,000 UNITS/ML VIAL 5000 UNITS SUB-Q ×3 (06:35→21:57)
[2020-08-25 06:47] LABS: Glucose Point of Care 149 (65-105)
[2020-08-25 06:52] LABS: Red Blood Cell Folate 727 ng/mL RBC (>280)
--- NOTE | 2020-08-25 09:01 | WPDNEURORHBP ---
Subjective Date/time seen: 08/25/20 09:01 patient was seen during morning rounds. Patient states he slept well. Patient admits minimal stump pain. Patient admits that he has not worked this hard in the long time referring to physical therapy. Patient admits to some dizziness but is lessening day by day. Patient continues to complain of blurred vision. Review of Systems Review of Systems: All systems reviewed & are unremarkable except as noted in HPI and below Functional Status Transfers Ability Ability to Transfer In/Out of Chair: Maximum Assistance X 2 Exam Narrative: Exam Narrative: The patient is resting comfortably in bed is in no acute distress. Head is normocephalic. External ocular muscles reveal full range of motion. Right eye ptosis is noted. heart rate and rhythm is regular lungs are clear to auscultation. Abdomen is obese soft nontender. bilateral upper extremity strength and lower extremity strength are 5/5. Patient does fatigue quickly. Objective Data Vital Signs Vital Signs: Vital Signs - 24 hr 08/24/20 09:27 08/24/20 14:00 08/24/20 21:04 Temperature 36.3 C L 35.9 C L Pulse Rate 91 74 79 Respiratory Rate 18 22 H Blood Pressure 108/63 120/72 Pulse Oximetry 100 98 08/24/20 21:10 08/25/20 05:29 Temperature 35.9 C L Pulse Rate 79 88 Respiratory Rate 16 Blood Pressure 117/66 Pulse Oximetry 96 Intake/Output Intake/Output: Intake & Output 08/22/20 08/23/20 08/24/20 08/25/20 23:59 23:59 23:59 23:59 Intake Total 6390 969 5339 120 Balance 3301 699 5337 120 Meds/Results Medications: Active Medications Generic Name Dose Route Start Last Admin Trade Name Freq PRN Reason Stop Dose Admin Acetaminophen 650 mg 08/21/20 14:06 08/24/20 21:01 Acetaminophen 325 Mg Tablet PO 650 mg Q6H PRN Administration Fever Or Pain Hydrocodone Bitart/Acetaminophen 2 tab 08/21/20 14:06 Hydrocodone/Acetaminophen (*Crx) 5-325 Mg Tablet PO Q4H PRN Pain, Moderate Aspirin 81 mg 08/22/20 09:00 08/24/20 09:26 Aspirin 81 Mg Enteric Tablet PO 81 mg DAILY [facility] Administration Atorvastatin Calcium 80 mg 08/22/20 09:00 08/24/20 09:26 Atorvastatin 40 Mg Tablet PO 80 mg DAILY [facility] Administration Benzonatate 100 mg 08/21/20 14:06 Benzonatate 100 Mg Capsule PO Q8H PRN Cough Bisacodyl 10 mg 08/21/20 14:06 Bisacodyl 5 Mg Tablet Ec PO DAILY PRN Constipation Clopidogrel Bisulfate 75 mg 08/22/20 09:00 08/24/20 09:27 Clopidogrel Bisulfate 75 Mg Tablet PO 75 mg DAILY [facility] Administration Dextrose 12.5 gm 08/21/20 14:07 Dextrose 50% 25 Gm/50 Ml Syringe IV PUSH PRN PRN Hypoglycemia Protocol Docusate Sodium 100 mg 08/21/20 14:06 Docusate Sodium 100 Mg Capsule PO Q12H PRN Constipation Famotidine 20 mg 08/22/20 09:00 08/24/20 09:27 Famotidine 20 Mg Tablet PO 20 mg DAILY [facility] Administration Furosemide 60 mg 08/24/20 09:00 08/24/20 09:26 Furosemide 20 Mg Tablet PO 60 mg DAILY [facility] Administration Glucagon 1 mg 08/21/20 14:07 Glucagon For Inj 1 Mg Vial IM PRN PRN Hypoglycemia Protocol Glucose 15 gm 08/21/20 14:07 Glucose Oral Gel 15 Gm Of Glucse In 37.5 Gm Tube PO PRN PRN Hypoglycemia Protocol Heparin Sodium (Porcine) 5,000 units 08/21/20 14:00 08/25/20 06:35 Heparin Sodium 5,000 Units/Ml Vial SUB-Q 5,000 units Q8HR [facility] Administration Dextrose 1,000 mls @ 100 mls/hr 08/21/20 14:07 Dextrose 5% 1,000 Ml IVPB PRN PRN Hypoglycemia Protocol Insulin Aspart 4 - 8 units 08/21/20 17:00 08/24/20 17:32 Insulin Aspart (*Bkc) 100 Units/Ml SUB-Q 4 units TIDWM [facility] Administration Protocol Isosorbide Dinitrate 10 mg 08/21/20 17:00 08/24/20 17:32 Isosorbide Dinitrate 10 Mg Tablet PO 10 mg BID [facility] Administration Lisinopril 5 mg 08/24/20 21:00 08/24/20 21:09 Lisinopril 5 Mg T
[2020-08-25] MEDS: ASPIRIN 81 MG ENTERIC TABLET PO (09:09)
[2020-08-25] MEDS: ATORVASTATIN 40 MG TABLET 80 MG PO (09:09)
[2020-08-25] MEDS: SPIRONOLACTONE 25 MG TABLET PO (09:10)
[2020-08-25] MEDS: FUROSEMIDE 20 MG TABLET 60 MG PO (09:10)
[2020-08-25] MEDS: CLOPIDOGREL BISULFATE 75 MG TABLET PO (09:10)
[2020-08-25] MEDS: ISOSORBIDE DINITRATE 10 MG TABLET PO ×2 (09:11→17:21)
[2020-08-25] MEDS: FAMOTIDINE 20 MG TABLET PO (09:11)
[2020-08-25 09:12] VITALS: PULSE 88
[2020-08-25] MEDS: METOPROLOL TARTRATE 50 MG TAB PO ×2 (09:12→20:50)
[2020-08-25] MEDS: TOLNAFTATE 1% POWDER 45 GM BTL 1 APPLIC TOPICAL ×2 (09:12→20:53)
[2020-08-25] MEDS: ACETAMINOPHEN 325 MG TABLET 650 MG PO ×2 (09:16→20:46)
[2020-08-25 12:16] LABS: Glucose Point of Care 159 (65-105)
[2020-08-25 14:00] VITALS: BP 102/57; PULSE 72; RESP 18; TEMP 35.8; O2SAT 100
[2020-08-25 17:19] LABS: Glucose Point of Care 187 (65-105)
[2020-08-25 20:48] VITALS: BP 132/63; PULSE 89
[2020-08-25 20:50] VITALS: PULSE 89
[2020-08-25] MEDS: lisinopriL 5 MG TABLET PO (20:50)
[2020-08-25] MEDS: PREGABALIN (*CRX) 75 MG CAPSULE 150 MG PO (20:51)
[2020-08-25 21:09] VITALS: BP 132/63; PULSE 89; RESP 22; TEMP 35.9; O2SAT 100
[2020-08-25 22:07] LABS: Glucose Point of Care 266 (65-105)
--- NOTE | 2020-08-26 03:53 | PC.NURSE ---
Daylight Savings Time For Daylight Savings Time Ending in the Fall - Clocks are moved back. For Daylight Savings Time Beginning in the Spring - Clocks are moved ahead. For [facility], the time of change occurs at 0200 hrs. Time is taken from the tray server. This entry on the patient's chart recognizes the change in time reflected during documentation. Example: 2 entries for vital signs may be charted for 0200 hrs.
[2020-08-26 04:33] VITALS: BP 126/60; PULSE 86; RESP 22; TEMP 36.4; O2SAT 100
[2020-08-26] MEDS: HEPARIN SODIUM 5,000 UNITS/ML VIAL 5000 UNITS SUB-Q ×3 (06:24→20:37)
[2020-08-26 06:38] LABS: Glucose Point of Care 169 (65-105)
[2020-08-26] MEDS: CLOPIDOGREL BISULFATE 75 MG TABLET PO (09:27)
[2020-08-26] MEDS: ASPIRIN 81 MG ENTERIC TABLET PO (09:27)
[2020-08-26] MEDS: ATORVASTATIN 40 MG TABLET 80 MG PO (09:27)
[2020-08-26] MEDS: FAMOTIDINE 20 MG TABLET PO (09:27)
[2020-08-26] MEDS: ISOSORBIDE DINITRATE 10 MG TABLET PO ×2 (09:28→16:39)
[2020-08-26 09:29] VITALS: PULSE 86
[2020-08-26] MEDS: polyethylene glycoL 3350 17 GM POWD.PACK PO ×2 (09:29→16:38)
[2020-08-26] MEDS: METOPROLOL TARTRATE 50 MG TAB PO ×2 (09:29→20:38)
[2020-08-26] MEDS: SPIRONOLACTONE 25 MG TABLET PO (09:31)
[2020-08-26] MEDS: FUROSEMIDE 20 MG TABLET 60 MG PO (09:34)
[2020-08-26] MEDS: TOLNAFTATE 1% POWDER 45 GM BTL 1 APPLIC TOPICAL ×2 (09:36→20:38)
--- NOTE | 2020-08-26 10:21 | WPDNEURORHBP ---
Subjective Date/time seen: 08/26/20 10:21 Patient voices no complaints. Patient denies dizziness. Patient is in good spirits. Review of Systems Review of Systems: All systems reviewed & are unremarkable except as noted in HPI and below Functional Status Transfers Ability Ability to Transfer In/Out of Chair: Maximum Assistance X 2 Exam Narrative: Exam Narrative: Patient is clean shaven and has taken a shower. Head is normocephalic. Heart rate and rhythm is regular. Lungs are clear to auscultation. Abdomen is obese. Upper extremity strength remains 5/5 left lower extremity strength is 5/5. Objective Data Vital Signs Vital Signs: Vital Signs - 24 hr 08/25/20 14:00 08/25/20 20:48 08/25/20 20:50 Temperature 35.8 C L Pulse Rate 72 89 89 Respiratory Rate 18 Blood Pressure 102/57 L 132/63 Pulse Oximetry 100 08/25/20 21:09 08/26/20 04:33 08/26/20 09:29 Temperature 35.9 C L 36.4 C Pulse Rate 89 86 86 Respiratory Rate 22 H 22 H Blood Pressure 132/63 126/60 Pulse Oximetry 100 100 Intake/Output Intake/Output: Intake & Output 08/23/20 08/24/20 08/25/20 08/27/20 23:59 23:59 23:59 00:59 Intake Total 720 1200 600 240 Balance 720 1200 600 240 Meds/Results Medications: Active Medications Generic Name Dose Route Start Last Admin Trade Name Freq PRN Reason Stop Dose Admin Acetaminophen 650 mg 08/21/20 14:06 08/25/20 20:46 Acetaminophen 325 Mg Tablet PO 650 mg Q6H PRN Administration Fever Or Pain Hydrocodone Bitart/Acetaminophen 2 tab 08/21/20 14:06 Hydrocodone/Acetaminophen (*Crx) 5-325 Mg Tablet PO Q4H PRN Pain, Moderate Aspirin 81 mg 08/22/20 09:00 08/26/20 09:27 Aspirin 81 Mg Enteric Tablet PO 81 mg DAILY [facility] Administration Atorvastatin Calcium 80 mg 08/22/20 09:00 08/26/20 09:27 Atorvastatin 40 Mg Tablet PO 80 mg DAILY [facility] Administration Benzonatate 100 mg 08/21/20 14:06 Benzonatate 100 Mg Capsule PO Q8H PRN Cough Bisacodyl 10 mg 08/21/20 14:06 Bisacodyl 5 Mg Tablet Ec PO DAILY PRN Constipation Clopidogrel Bisulfate 75 mg 08/22/20 09:00 08/26/20 09:27 Clopidogrel Bisulfate 75 Mg Tablet PO 75 mg DAILY [facility] Administration Dextrose 12.5 gm 08/21/20 14:07 Dextrose 50% 25 Gm/50 Ml Syringe IV PUSH PRN PRN Hypoglycemia Protocol Docusate Sodium 100 mg 08/21/20 14:06 Docusate Sodium 100 Mg Capsule PO Q12H PRN Constipation Famotidine 20 mg 08/22/20 09:00 08/26/20 09:27 Famotidine 20 Mg Tablet PO 20 mg DAILY [facility] Administration Furosemide 60 mg 08/24/20 09:00 08/26/20 09:34 Furosemide 20 Mg Tablet PO 60 mg DAILY [facility] Administration Glucagon 1 mg 08/21/20 14:07 Glucagon For Inj 1 Mg Vial IM PRN PRN Hypoglycemia Protocol Glucose 15 gm 08/21/20 14:07 Glucose Oral Gel 15 Gm Of Glucse In 37.5 Gm Tube PO PRN PRN Hypoglycemia Protocol Heparin Sodium (Porcine) 5,000 units 08/21/20 14:00 08/26/20 06:24 Heparin Sodium 5,000 Units/Ml Vial SUB-Q 5,000 units Q8HR [facility] Administration Dextrose 1,000 mls @ 100 mls/hr 08/21/20 14:07 Dextrose 5% 1,000 Ml IVPB PRN PRN Hypoglycemia Protocol Insulin Aspart 4 - 8 units 08/21/20 17:00 08/26/20 07:41 Insulin Aspart (*Bkc) 100 Units/Ml SUB-Q Not Given TIDWM [facility] Protocol Isosorbide Dinitrate 10 mg 08/21/20 17:00 08/26/20 09:28 Isosorbide Dinitrate 10 Mg Tablet PO 10 mg BID [facility] Administration Lisinopril 5 mg 08/24/20 21:00 08/25/20 20:50 Lisinopril 5 Mg Tablet PO 5 mg BEDTIME [facility] Administration Metoprolol Tartrate 50 mg 08/21/20 21:00 08/26/20 09:29 Metoprolol Tartrate 50 Mg Tab PO 50 mg Q12HR [facility] Administration Ondansetron HCl 4 mg 08/21/20 14:24 Ondansetron Hcl Odt 4 Mg Tablet PO Q6H PRN Nausea And Vomiting Polyethylene Glycol 17 gm 08/21/20 14:06 Polyethy
[2020-08-26] MEDS: ACETAMINOPHEN 325 MG TABLET 650 MG PO (10:25)
[2020-08-26 11:21] LABS: Glucose Point of Care 165 (65-105)
[2020-08-26 14:00] VITALS: BP 132/67; PULSE 82; RESP 20; TEMP 36.2; O2SAT 100
[2020-08-26 16:25] LABS: Glucose Point of Care 227 (65-105)
[2020-08-26] MEDS: INSULIN ASPART (*BKC) 100 UNITS/ML SUB-Q (16:26)
[2020-08-26 20:00] VITALS: BP 138/76; PULSE 82; RESP 22; TEMP 36.4; O2SAT 100
[2020-08-26 20:38] VITALS: PULSE 82
[2020-08-26] MEDS: PREGABALIN (*CRX) 75 MG CAPSULE 150 MG PO (20:38)
[2020-08-26] MEDS: lisinopriL 5 MG TABLET PO (20:38)
[2020-08-26 20:40] LABS: Glucose Point of Care 216 (65-105)
[2020-08-27] MEDS: ACETAMINOPHEN 325 MG TABLET 650 MG PO ×3 (03:34→20:33)
[2020-08-27 04:37] LABS: Potassium 3.8 mmol/L (3.4-5.0)
[2020-08-27] MEDS: HEPARIN SODIUM 5,000 UNITS/ML VIAL 5000 UNITS SUB-Q ×3 (05:46→21:33)
[2020-08-27 06:00] VITALS: BP 139/75; PULSE 96; RESP 18; TEMP 36.3; O2SAT 99
[2020-08-27 06:24] LABS: Glucose Point of Care 171 (65-105)
[2020-08-27 09:12] VITALS: PULSE 96
[2020-08-27] MEDS: METOPROLOL TARTRATE 50 MG TAB PO ×2 (09:12→20:32)
[2020-08-27] MEDS: CLOPIDOGREL BISULFATE 75 MG TABLET PO (09:12)
[2020-08-27] MEDS: ASPIRIN 81 MG ENTERIC TABLET PO (09:12)
[2020-08-27] MEDS: ISOSORBIDE DINITRATE 10 MG TABLET PO ×2 (09:12→17:37)
[2020-08-27] MEDS: FUROSEMIDE 20 MG TABLET 60 MG PO (09:12)
[2020-08-27] MEDS: TOLNAFTATE 1% POWDER 45 GM BTL 1 APPLIC TOPICAL ×2 (09:13→21:34)
[2020-08-27] MEDS: ATORVASTATIN 40 MG TABLET 80 MG PO (09:13)
[2020-08-27] MEDS: FAMOTIDINE 20 MG TABLET PO (09:13)
[2020-08-27] MEDS: SPIRONOLACTONE 25 MG TABLET PO (09:13)
[2020-08-27] MEDS: DIPHENHYDRAMINE 1%/ZINC 0.1% CREAM 30 GM TUBE 1 APPLIC TOPICAL (09:17)
--- NOTE | 2020-08-27 11:22 | WPDNEURORHBP ---
Subjective Date/time seen: 08/27/20 11:22 Patient complains of right wrist pain. patient complains of right eye blurred vision. Review of Systems Review of Systems: All systems reviewed & are unremarkable except as noted in HPI and below Functional Status Transfers Ability Ability to Transfer In/Out of Chair: Maximum Assistance X 2 Exam Narrative: Exam Narrative: Patient is in no acute distress. Head is normocephalic. Right eye ptosis remains. Patient tends to close his right eye. This was noted on admission. Heart rate and rhythm is regular. Lungs are clear to auscultation. Abdomen is obese soft nontender. Bilateral upper extremity strength are 5/5. Right wrist reveals tenderness to the carpal metacarpal areas. Swelling is noted to this area. Right eye is slightly pink with no exudate. Stump incision shows scant drainage. Skin approximation is still not present to the medial aspect of the incision. Objective Data Vital Signs Vital Signs: Vital Signs - 24 hr 08/26/20 14:00 08/26/20 20:00 08/26/20 20:38 Temperature 36.2 C L 36.4 C Pulse Rate 82 82 82 Respiratory Rate 20 22 H Blood Pressure 132/67 138/76 Pulse Oximetry 100 100 08/27/20 06:00 08/27/20 09:12 Temperature 36.3 C L Pulse Rate 96 96 Respiratory Rate 18 Blood Pressure 139/75 Pulse Oximetry 99 Intake/Output Intake/Output: Intake & Output 08/24/20 08/25/20 08/26/20 08/27/20 22:59 22:59 23:59 23:59 Intake Total 480 Balance 480 Meds/Results Medications: Active Medications Generic Name Dose Route Start Last Admin Trade Name Freq PRN Reason Stop Dose Admin Acetaminophen 650 mg 08/21/20 14:06 08/27/20 09:10 Acetaminophen 325 Mg Tablet PO 650 mg Q6H PRN Administration Fever Or Pain Hydrocodone Bitart/Acetaminophen 2 tab 08/21/20 14:06 Hydrocodone/Acetaminophen (*Crx) 5-325 Mg Tablet PO Q4H PRN Pain, Moderate Artificial Tears 1 drop 08/27/20 13:00 Artificial Tears Op Soln 15 Ml Bottle EACH EYE QID [facility] Aspirin 81 mg 08/22/20 09:00 08/27/20 09:12 Aspirin 81 Mg Enteric Tablet PO 81 mg DAILY [facility] Administration Atorvastatin Calcium 80 mg 08/22/20 09:00 08/27/20 09:13 Atorvastatin 40 Mg Tablet PO 80 mg DAILY [facility] Administration Benzonatate 100 mg 08/21/20 14:06 Benzonatate 100 Mg Capsule PO Q8H PRN Cough Bisacodyl 10 mg 08/21/20 14:06 Bisacodyl 5 Mg Tablet Ec PO DAILY PRN Constipation Clopidogrel Bisulfate 75 mg 08/22/20 09:00 08/27/20 09:12 Clopidogrel Bisulfate 75 Mg Tablet PO 75 mg DAILY [facility] Administration Dextrose 12.5 gm 08/21/20 14:07 Dextrose 50% 25 Gm/50 Ml Syringe IV PUSH PRN PRN Hypoglycemia Protocol Docusate Sodium 100 mg 08/21/20 14:06 Docusate Sodium 100 Mg Capsule PO Q12H PRN Constipation Famotidine 20 mg 08/22/20 09:00 08/27/20 09:13 Famotidine 20 Mg Tablet PO 20 mg DAILY [facility] Administration Furosemide 60 mg 08/24/20 09:00 08/27/20 09:12 Furosemide 20 Mg Tablet PO 60 mg DAILY [facility] Administration Glucagon 1 mg 08/21/20 14:07 Glucagon For Inj 1 Mg Vial IM PRN PRN Hypoglycemia Protocol Glucose 15 gm 08/21/20 14:07 Glucose Oral Gel 15 Gm Of Glucse In 37.5 Gm Tube PO PRN PRN Hypoglycemia Protocol Heparin Sodium (Porcine) 5,000 units 08/21/20 14:00 08/27/20 05:46 Heparin Sodium 5,000 Units/Ml Vial SUB-Q 5,000 units Q8HR [facility] Administration Dextrose 1,000 mls @ 100 mls/hr 08/21/20 14:07 Dextrose 5% 1,000 Ml IVPB PRN PRN Hypoglycemia Protocol Insulin Aspart 4 - 8 units 08/21/20 17:00 08/27/20 09:05 Insulin Aspart (*Bkc) 100 Units/Ml SUB-Q Not Given TIDWM [facility] Protocol Isosorbide Dinitrate 10 mg 08/21/20 17:00 08/27/20 09:12 Isosorbide Dinitrate 10 Mg Tablet PO 10 mg BID [facility] Administration Lisinopril 5 mg 08/24/20 21:00 08/26/20 2
[2020-08-27 12:10] LABS: Glucose Point of Care 175 (65-105)
[2020-08-27 14:00] VITALS: BP 106/59; PULSE 82; RESP 20; TEMP 35.9; O2SAT 100
[2020-08-27 17:09] LABS: Glucose Point of Care 253 (65-105)
[2020-08-27] MEDS: INSULIN ASPART (*BKC) 100 UNITS/ML SUB-Q (17:35)
[2020-08-27 20:00] VITALS: PULSE 107; RESP 18; O2SAT 99
[2020-08-27 20:32] VITALS: PULSE 100
[2020-08-27] MEDS: lisinopriL 5 MG TABLET PO (20:32)
[2020-08-27] MEDS: PREGABALIN (*CRX) 75 MG CAPSULE 150 MG PO (20:33)
[2020-08-27 21:04] LABS: Glucose Point of Care 262 (65-105)
[2020-08-27 21:50] VITALS: BP 145/86; PULSE 107; RESP 18; TEMP 36.5; O2SAT 99
[2020-08-28 06:00] VITALS: BP 131/91; PULSE 103; RESP 18; TEMP 36.5; O2SAT 98
[2020-08-28] MEDS: HEPARIN SODIUM 5,000 UNITS/ML VIAL 5000 UNITS SUB-Q ×3 (06:03→20:53)
[2020-08-28 06:25] LABS: Glucose Point of Care 214 (65-105)
[2020-08-28] MEDS: INSULIN ASPART (*BKC) 100 UNITS/ML SUB-Q (07:48)
[2020-08-28] MEDS: ACETAMINOPHEN 325 MG TABLET 650 MG PO (09:03)
[2020-08-28] MEDS: FUROSEMIDE 20 MG TABLET 60 MG PO (10:02)
[2020-08-28] MEDS: ATORVASTATIN 40 MG TABLET 80 MG PO (10:02)
[2020-08-28] MEDS: FAMOTIDINE 20 MG TABLET PO (10:02)
[2020-08-28] MEDS: ISOSORBIDE DINITRATE 10 MG TABLET PO ×2 (10:02→17:18)
[2020-08-28 10:03] VITALS: PULSE 103
[2020-08-28] MEDS: ASPIRIN 81 MG ENTERIC TABLET PO (10:03)
[2020-08-28] MEDS: CLOPIDOGREL BISULFATE 75 MG TABLET PO (10:03)
[2020-08-28] MEDS: SPIRONOLACTONE 25 MG TABLET PO (10:03)
[2020-08-28] MEDS: HYDROcodone/acetaminophen (*CRX) 5-325 MG TABLET 2 TAB PO ×2 (10:03→20:52)
[2020-08-28] MEDS: METOPROLOL TARTRATE 50 MG TAB PO ×2 (10:03→20:54)
[2020-08-28] MEDS: polyethylene glycoL 3350 17 GM POWD.PACK PO ×2 (10:05→17:18)
[2020-08-28] MEDS: TOLNAFTATE 1% POWDER 45 GM BTL 1 APPLIC TOPICAL ×2 (10:05→20:54)
[2020-08-28] MEDS: EUCERIN CREAM 120 GM JAR 1 APPLIC TOPICAL ×2 (11:54→20:56)
[2020-08-28 12:03] LABS: Glucose Point of Care 140 (65-105)
[2020-08-28 14:00] VITALS: BP 138/79; PULSE 101; RESP 18; TEMP 36.9; O2SAT 95
--- NOTE | 2020-08-28 14:12 | WPDNEURORHBP ---
Subjective Date/time seen: 08/28/20 14:12 patient present during family in team conference. Patient has redness to the left heel. Patient missed ongoing blurred vision. Review of Systems Review of Systems: All systems reviewed & are unremarkable except as noted in HPI and below Functional Status Transfers Ability Ability to Transfer In/Out of Chair: Maximum Assistance X 2 Exam Narrative: Exam Narrative: Head is normocephalic right eye ptosis is noted. Mild redness is noted without exudate. Speech is fluent. Heart rate and rhythm is regular. Lungs are clear to auscultation. Abdomen is obese. Right hand is in a splint. Left heel reveals redness currently blanching. Objective Data Vital Signs Vital Signs: Vital Signs - 24 hr 08/27/20 20:00 08/27/20 20:32 08/27/20 21:50 Temperature 36.5 C Pulse Rate 107 H 100 107 H Respiratory Rate 18 18 Blood Pressure 145/86 H Pulse Oximetry 99 99 08/28/20 06:00 08/28/20 10:03 08/28/20 14:00 Temperature 36.5 C 36.9 C Pulse Rate 103 H 103 H 101 H Respiratory Rate 18 18 Blood Pressure 131/91 H 138/79 Pulse Oximetry 98 95 Intake/Output Intake/Output: Intake & Output 08/25/20 08/26/20 08/27/20 08/28/20 22:59 23:59 23:59 23:59 Intake Total 1200 480 Balance 1200 480 Meds/Results Medications: Active Medications Generic Name Dose Route Start Last Admin Trade Name Freq PRN Reason Stop Dose Admin Acetaminophen 650 mg 08/21/20 14:06 08/28/20 09:03 Acetaminophen 325 Mg Tablet PO 650 mg Q6H PRN Administration Fever Or Pain Hydrocodone Bitart/Acetaminophen 2 tab 08/21/20 14:06 08/28/20 10:03 Hydrocodone/Acetaminophen (*Crx) 5-325 Mg Tablet PO 2 tab Q4H PRN Administration Pain, Moderate Artificial Tears 1 drop 08/27/20 13:00 08/28/20 13:56 Artificial Tears Op Soln 15 Ml Bottle EACH EYE 1 drop QID [facility] Administration Aspirin 81 mg 08/22/20 09:00 08/28/20 10:03 Aspirin 81 Mg Enteric Tablet PO 81 mg DAILY [facility] Administration Atorvastatin Calcium 80 mg 08/22/20 09:00 08/28/20 10:02 Atorvastatin 40 Mg Tablet PO 80 mg DAILY [facility] Administration Benzonatate 100 mg 08/21/20 14:06 Benzonatate 100 Mg Capsule PO Q8H PRN Cough Bisacodyl 10 mg 08/21/20 14:06 Bisacodyl 5 Mg Tablet Ec PO DAILY PRN Constipation Clopidogrel Bisulfate 75 mg 08/22/20 09:00 08/28/20 10:03 Clopidogrel Bisulfate 75 Mg Tablet PO 75 mg DAILY [facility] Administration Dextrose 12.5 gm 08/21/20 14:07 Dextrose 50% 25 Gm/50 Ml Syringe IV PUSH PRN PRN Hypoglycemia Protocol Docusate Sodium 100 mg 08/21/20 14:06 Docusate Sodium 100 Mg Capsule PO Q12H PRN Constipation Famotidine 20 mg 08/22/20 09:00 08/28/20 10:02 Famotidine 20 Mg Tablet PO 20 mg DAILY [facility] Administration Furosemide 60 mg 08/24/20 09:00 08/28/20 10:02 Furosemide 20 Mg Tablet PO 60 mg DAILY [facility] Administration Glucagon 1 mg 08/21/20 14:07 Glucagon For Inj 1 Mg Vial IM PRN PRN Hypoglycemia Protocol Glucose 15 gm 08/21/20 14:07 Glucose Oral Gel 15 Gm Of Glucse In 37.5 Gm Tube PO PRN PRN Hypoglycemia Protocol Heparin Sodium (Porcine) 5,000 units 08/21/20 14:00 08/28/20 13:56 Heparin Sodium 5,000 Units/Ml Vial SUB-Q 5,000 units Q8HR [facility] Administration Dextrose 1,000 mls @ 100 mls/hr 08/21/20 14:07 Dextrose 5% 1,000 Ml IVPB PRN PRN Hypoglycemia Protocol Insulin Aspart 4 - 8 units 08/21/20 17:00 08/28/20 12:18 Insulin Aspart (*Bkc) 100 Units/Ml SUB-Q Not Given TIDWM [facility] Protocol Isosorbide Dinitrate 10 mg 08/21/20 17:00 08/28/20 10:02 Isosorbide Dinitrate 10 Mg Tablet PO 10 mg BID [facility] Administration Lisinopril 5 mg 08/24/20 21:00 08/27/20 20:32 Lisinopril 5 Mg Tablet PO 5 mg BEDTIME [facility] Administration Metoprolol Tartrate 50 mg 08/21/20 21:00 08/28/20 10:
[2020-08-28 16:54] LABS: Glucose Point of Care 167 (65-105)
[2020-08-28 20:40] VITALS: PULSE 100; RESP 18; O2SAT 98
[2020-08-28] MEDS: PREGABALIN (*CRX) 75 MG CAPSULE 150 MG PO (20:53)
[2020-08-28] MEDS: lisinopriL 5 MG TABLET PO (20:53)
[2020-08-28 20:54] VITALS: PULSE 96
[2020-08-28 21:16] LABS: Glucose Point of Care 221 (65-105)
[2020-08-28 22:00] VITALS: BP 153/84; PULSE 100; RESP 18; TEMP 36.6; O2SAT 98
[2020-08-29 05:11] LABS: Basophils Absolute Auto 0.1 K/mm3 (0.0-0.1); Basophils Percent Auto 0.6 % (0.2-1.2); Eosinophils Absolute Auto 0.4 K/mm3 (0-0.3); Eosinophils Percent Auto 4.2 % (0-4.4); Hematocrit 31.4 % (42.0-52.0); Hemoglobin 9.8 g/dL (14.0-18.0); Immature Granulocyte Absolute 0.08 K/mm3 (0.00-0.031); Lymphocytes Absolute Auto 1.82 K/mm3 (0.9-3.2); Lymphocytes Percent Auto 21.8 % (18.3-44.2); Mean Corpuscular HGB Conc 31.2 g/dl (32-36); Mean Corpuscular Hemoglobin 24.1 pg (26-34); Mean Corpuscular Volume 77.3 fl (80-100); Mean Platelet Volume 11.1 fl (7.4-10.4); Monocytes Absolute Auto 0.8 K/mm3 (0.1-0.6); Monocytes Percent Auto 9.8 % (2.6-8.5); Neutrophils Absolute Auto 5.2 K/mm3 (1.3-6.7); Neutrophils Percent Auto 62.6 % (45.5-73.1); Platelet Count Result 337 k/mm3 (150-375); Red Blood Count 4.06 M/mm3 (4.6-6.20); Red Cell Distribution Width 16.3 % (11.5-14.5); White Blood Count 8.3 K/mm3 (4.5-10.0)
[2020-08-29 05:26] LABS: Anion Gap 8 mmol/L (8-16); Blood Urea Nitrogen 28 mg/dL (9-20); Calcium 8.4 mg/dL (8.4-10.2); Carbon Dioxide 29 mmol/L (22-30); Chloride 100 mmol/L (98-107); Estimated CRCL calculation 90 ml/min; Estimated Glomerular Filt Rate > 60; Glucose 166 mg/dL (75-110); Potassium 4.2 mmol/L (3.4-5.0); Sodium 137 mmol/L (137-145)
[2020-08-29 05:42] VITALS: BP 137/84; PULSE 97; RESP 18; TEMP 36; O2SAT 97
[2020-08-29] MEDS: HEPARIN SODIUM 5,000 UNITS/ML VIAL 5000 UNITS SUB-Q ×2 (05:57→12:56)
[2020-08-29 06:03] LABS: Glucose Point of Care 169 (65-105)
--- NOTE | 2020-08-29 07:57 | PCPTNOTE ---
Shaista Rodriguez PTA completed an inpatient rehab wheelchair evaluation on Salvatore Elmore on 08/29/2020. The patient is unable to safely and independently ambulate household distances due to their current impairments. Their diagnosis is Rt BKA and their impairments include decreased strength, decreased endurance, decreased range of motion, decreased balance and lower extremity weakness. Salvatore's weight bearing status is weight-bearing as tolerated on the left lower leg and non weight bearing through right lower leg. The patient demonstrates significant functional mobility limitations that impair their ability to participate in mobility-related activities of daily living (MRADLs), including toileting, feeding, dressing, grooming, and bathing in the customary locations in the home. These limitations cannot be sufficiently resolved by the use of an appropriately fitted cane or walker. It is recommended that the patient utilize a wheelchair for functional mobility within the home in order to facilitate optimal safety, independence and participation in all MRADL's and adequately access their home environment on a regular basis. The patient's home provides adequate access between rooms, maneuvering space, and surfaces to accommodate the recommended wheelchair. The use of a wheelchair for functional mobility is strongly recommended and the patient is receptive to using the wheelchair. The use of this wheelchair will significantly improve the patient's ability to participate in MRADLS and the patient will use it on a regular basis in the home. This will facilitate optimal safety, independence, and participation. The patient has demonstrated sufficient physical and mental capabilities needed to safely propel a manual wheelchair that is provided in the home during a typical day. Recommended Wheelchair Frame: 20x18 Recommended Wheelchair Size: standard Recommended Wheelchair Cushion: standard Wheelchair Leg Recommendations: right residual limb leg rest and swing away left leg rest Wheelchair arm rest recommendations: Swing away arm rests - Anti-tippers are recommended due to patient demonstrating increased risk for falls. They would benefit from anti-tippers with added safety and stabilization. Shaista Hoffmanenport MEDICAL DIRECTOR OF HOSPICE 08/29/2020 Evaluating Therapist Date I agree with and certify that the above recommendation is medically necessary. Referring Physician Date I agree with and certify that the above recommendation is medically necessary. Referring Physician Date
--- NOTE | 2020-08-29 07:59 | PCPTNOTE ---
Salvatore Elmore was evaluated for a slide board on 08/29/2020 by this physical therapist assistant clinical director. The slide board will resolve patient's mobility limitations and will be used for ADL's within the home. The patient can safely use the slide board. ?The slide board will resolve the patient?s mobility deficits, including imapired balance, decraese strength and decrease endurance.
[2020-08-29 09:04] VITALS: PULSE 97
[2020-08-29] MEDS: SPIRONOLACTONE 25 MG TABLET PO (09:04)
[2020-08-29] MEDS: METOPROLOL TARTRATE 50 MG TAB PO ×2 (09:04→21:22)
[2020-08-29] MEDS: ATORVASTATIN 40 MG TABLET 80 MG PO (09:04)
[2020-08-29] MEDS: FUROSEMIDE 20 MG TABLET 60 MG PO (09:04)
[2020-08-29] MEDS: ASPIRIN 81 MG ENTERIC TABLET PO (09:04)
[2020-08-29] MEDS: CLOPIDOGREL BISULFATE 75 MG TABLET PO (09:04)
[2020-08-29] MEDS: ISOSORBIDE DINITRATE 10 MG TABLET PO ×2 (09:04→17:25)
[2020-08-29] MEDS: FAMOTIDINE 20 MG TABLET PO (09:04)
[2020-08-29] MEDS: EUCERIN CREAM 120 GM JAR 1 APPLIC TOPICAL ×3 (09:05→21:24)
[2020-08-29] MEDS: polyethylene glycoL 3350 17 GM POWD.PACK PO ×2 (09:05→17:25)
[2020-08-29] MEDS: TOLNAFTATE 1% POWDER 45 GM BTL 1 APPLIC TOPICAL ×2 (09:05→21:24)
[2020-08-29] MEDS: ACETAMINOPHEN 325 MG TABLET 650 MG PO (09:33)
--- NOTE | 2020-08-29 10:17 | WPDNEURORHBP ---
Subjective Date/time seen: 08/29/20 10:17 64-year-old male with known medical history of hypertension, coronary artery disease, status post CABG in 2017, diabetes mellitus with neuropathy retinopathy. Peripheral arterial disease with multiple interventions, recent right Charcot foot with nonhealing ulcer, presented to [facility] on August 06, 2020 with severe right foot pain. Patient underwent on 08/14/2020 a right below-knee amputation. Postoperatively patient experienced acute postop pain, acute blood loss anemia, electrolyte imbalance, acute on chronic kidney disease, lower extremity edema and volume overload, episodes of hypertension. Patient will be placed on aspirin and Plavix. Patient is currently being treated with heparin for DVT prophylaxis. Patient is in good spirits. Patient states he has feeling the best he has felt since being admitted. Patient's overall energy and awareness is markedly improved. Review of Systems Review of Systems: Narrative: Patient admits to decreasing right eye pain. However patient continues to rub the eye forcibly which creates pain. There is no exudate noted to the eye. The patient admits to mild right stump pain. Functional Status Transfers Ability Ability to Transfer In/Out of Chair: Maximum Assistance X 2 Exam Narrative: Exam Narrative: Head is normocephalic right eye ptosis is noted. Mild redness is noted without exudate. Speech is fluent. Heart rate and rhythm is regular. Lungs are clear to auscultation. Abdomen is obese. Right hand is in a splint. Left heel was not evaluated Objective Data Vital Signs Vital Signs: Vital Signs - 24 hr 08/28/20 14:00 08/28/20 20:40 08/28/20 20:54 Temperature 36.9 C Pulse Rate 101 H 100 96 Respiratory Rate 18 18 Blood Pressure 138/79 Pulse Oximetry 95 98 08/28/20 22:00 08/29/20 05:42 08/29/20 09:04 Temperature 36.6 C 36.0 C L Pulse Rate 100 97 97 Respiratory Rate 18 18 Blood Pressure 153/84 H 137/84 Pulse Oximetry 98 97 Intake/Output Intake/Output: Intake & Output 08/26/20 08/27/20 08/28/20 08/29/20 23:59 23:59 23:59 23:59 Intake Total 1200 720 240 Balance 1200 720 240 Meds/Results Medications: Active Medications Generic Name Dose Route Start Last Admin Trade Name Freq PRN Reason Stop Dose Admin Acetaminophen 650 mg 08/21/20 14:06 08/29/20 09:33 Acetaminophen 325 Mg Tablet PO 650 mg Q6H PRN Administration Fever Or Pain Hydrocodone Bitart/Acetaminophen 2 tab 08/21/20 14:06 08/28/20 20:52 Hydrocodone/Acetaminophen (*Crx) 5-325 Mg Tablet PO 2 tab Q4H PRN Administration Pain Rated 7-10 Hydrocodone Bitart/Acetaminophen 1 tab 08/29/20 09:13 Hydrocodone/Acetaminophen (*Crx) 5-325 Mg Tablet PO Q4H PRN Pain Rated 4-6 Artificial Tears 1 drop 08/27/20 13:00 08/29/20 09:04 Artificial Tears Op Soln 15 Ml Bottle EACH EYE 1 drop QID [facility] Administration Aspirin 81 mg 08/22/20 09:00 08/29/20 09:04 Aspirin 81 Mg Enteric Tablet PO 81 mg DAILY [facility] Administration Atorvastatin Calcium 80 mg 08/22/20 09:00 08/29/20 09:04 Atorvastatin 40 Mg Tablet PO 80 mg DAILY [facility] Administration Benzonatate 100 mg 08/21/20 14:06 Benzonatate 100 Mg Capsule PO Q8H PRN Cough Bisacodyl 10 mg 08/21/20 14:06 Bisacodyl 5 Mg Tablet Ec PO DAILY PRN Constipation Clopidogrel Bisulfate 75 mg 08/22/20 09:00 08/29/20 09:04 Clopidogrel Bisulfate 75 Mg Tablet PO 75 mg DAILY [facility] Administration Dextrose 12.5 gm 08/21/20 14:07 Dextrose 50% 25 Gm/50 Ml Syringe IV PUSH PRN PRN Hypoglycemia Protocol Docusate Sodium 100 mg 08/21/20 14:06 Docusate Sodium 100 Mg Capsule PO Q12H PRN Constipation Famotidine 20 mg 08/22/20 09:00 08/29/20 09:04 Famotidine 20 Mg Tablet PO 20 mg DAILY [facility] Administration Furosemide 60 mg 08/24/20 09:00 08/29/20 09:04 Furosemide 20 Mg Tabl
[2020-08-29 12:19] LABS: Glucose Point of Care 191 (65-105)
[2020-08-29] MEDS: BISACODYL 5 MG TABLET EC 10 MG PO (12:56)
--- NOTE | 2020-08-29 12:58 | PCDIET ---
Nutrition Follow-Up Complete: Nutrition Diagnosis: Increased protein needs related to wound as evidenced by right below the knee amputation. Nutrition Goal: Patient to consume 75% or more of meals on current diet. Goal met. Patient consuming 75-100% of most meals on diabetic diet. Reports good appetite without nutrition related concerns. Encouraged patient to continue choosing protein rich food with each meal. Eating spaghetti and meat sauce for lunch. Last recorded weight is 111.5 kg. Recommend obtaining weekly weight. Bowel Motility: Last documented BM on 08/24/20. Patient has prn orders for Colace and Dulcolax. Labs Reviewed: Hgb (9.8), Hct (31.4), Glu (166), BUN (28) Meds Noted: [place], Lipitor, Pepcid, Lasix, Novolog, Lisinopril, Lopressor, Miralax, Spironolactone Additional Notes: Left heel deep tissue ulcer; wound nurse documentation noted. Will continue to monitor with same goal. Nutrition Monitoring and Evaluation: Follow up in 7 days.
[2020-08-29 14:00] VITALS: BP 112/60; PULSE 80; RESP 16; TEMP 36.3; O2SAT 100
[2020-08-29] MEDS: HYDROcodone/acetaminophen (*CRX) 5-325 MG TABLET 1 TAB PO (14:35)
--- NOTE | 2020-08-29 15:05 | WPDNEURORHBP ---
Subjective Date/time seen: 08/29/20 15:05 Review of Systems Constitutional: Constitutional: Reports as per HPI, Reports body ache(s) and Reports excessive sweating Functional Status Transfers Ability Ability to Transfer In/Out of Chair: Maximum Assistance X 2 Objective Data Vital Signs Vital Signs: Vital Signs - 24 hr 08/28/20 20:40 08/28/20 20:54 08/28/20 22:00 Temperature 36.6 C Pulse Rate 100 96 100 Respiratory Rate 18 18 Blood Pressure 153/84 H Pulse Oximetry 98 98 08/29/20 05:42 08/29/20 09:04 08/29/20 14:00 Temperature 36.0 C L 36.3 C L Pulse Rate 97 97 80 Respiratory Rate 18 16 Blood Pressure 137/84 112/60 Pulse Oximetry 97 100 Intake/Output Intake/Output: Intake & Output 08/26/20 08/27/20 08/28/20 08/29/20 23:59 23:59 23:59 23:59 Intake Total 1200 720 480 Balance 1200 720 480 Meds/Results Medications: Active Medications Generic Name Dose Route Start Last Admin Trade Name Freq PRN Reason Stop Dose Admin Acetaminophen 650 mg 08/21/20 14:06 08/29/20 09:33 Acetaminophen 325 Mg Tablet PO 650 mg Q6H PRN Administration Fever Or Pain Hydrocodone Bitart/Acetaminophen 2 tab 08/21/20 14:06 08/28/20 20:52 Hydrocodone/Acetaminophen (*Crx) 5-325 Mg Tablet PO 2 tab Q4H PRN Administration Pain Rated 7-10 Hydrocodone Bitart/Acetaminophen 1 tab 08/29/20 09:13 08/29/20 14:35 Hydrocodone/Acetaminophen (*Crx) 5-325 Mg Tablet PO 1 tab Q4H PRN Administration Pain Rated 4-6 Artificial Tears 1 drop 08/27/20 13:00 08/29/20 12:56 Artificial Tears Op Soln 15 Ml Bottle EACH EYE 1 drop QID [facility] Administration Aspirin 81 mg 08/22/20 09:00 08/29/20 09:04 Aspirin 81 Mg Enteric Tablet PO 81 mg DAILY [facility] Administration Atorvastatin Calcium 80 mg 08/22/20 09:00 08/29/20 09:04 Atorvastatin 40 Mg Tablet PO 80 mg DAILY [facility] Administration Benzonatate 100 mg 08/21/20 14:06 Benzonatate 100 Mg Capsule PO Q8H PRN Cough Bisacodyl 10 mg 08/21/20 14:06 08/29/20 12:56 Bisacodyl 5 Mg Tablet Ec PO 10 mg DAILY PRN Administration Constipation Clopidogrel Bisulfate 75 mg 08/22/20 09:00 08/29/20 09:04 Clopidogrel Bisulfate 75 Mg Tablet PO 75 mg DAILY [facility] Administration Dextrose 12.5 gm 08/21/20 14:07 Dextrose 50% 25 Gm/50 Ml Syringe IV PUSH PRN PRN Hypoglycemia Protocol Docusate Sodium 100 mg 08/21/20 14:06 Docusate Sodium 100 Mg Capsule PO Q12H PRN Constipation Famotidine 20 mg 08/22/20 09:00 08/29/20 09:04 Famotidine 20 Mg Tablet PO 20 mg DAILY [facility] Administration Furosemide 60 mg 08/24/20 09:00 08/29/20 09:04 Furosemide 20 Mg Tablet PO 60 mg DAILY [facility] Administration Glucagon 1 mg 08/21/20 14:07 Glucagon For Inj 1 Mg Vial IM PRN PRN Hypoglycemia Protocol Glucose 15 gm 08/21/20 14:07 Glucose Oral Gel 15 Gm Of Glucse In 37.5 Gm Tube PO PRN PRN Hypoglycemia Protocol Dextrose 1,000 mls @ 100 mls/hr 08/21/20 14:07 Dextrose 5% 1,000 Ml IVPB PRN PRN Hypoglycemia Protocol Insulin Aspart 4 - 8 units 08/21/20 17:00 08/29/20 11:37 Insulin Aspart (*Bkc) 100 Units/Ml SUB-Q Not Given TIDWM [facility]UC Protocol Isosorbide Dinitrate 10 mg 08/21/20 17:00 08/29/20 09:04 Isosorbide Dinitrate 10 Mg Tablet PO 10 mg BID [facility] Administration Lisinopril 5 mg 08/24/20 21:00 08/28/20 20:53 Lisinopril 5 Mg Tablet PO 5 mg BEDTIME [facility] Administration Metoprolol Tartrate 50 mg 08/21/20 21:00 08/29/20 09:04 Metoprolol Tartrate 50 Mg Tab PO 50 mg Q12HR [facility] Administration Multi-Ingred Cream/Lotion/Oil/Oint 1 applic 08/28/20 09:00 08/29/20 09:17 Eucerin Cream 120 Gm Jar TOPICAL 1 applic Q12H [facility] Administration Ondansetron HCl 4 mg 08/21/20 14:24 Ondansetron Hcl Odt 4 Mg Tablet PO Q6H PRN Nausea And Vomiting Polyethylene Glycol
[2020-08-29 16:55] LABS: Glucose Point of Care 229 (65-105)
[2020-08-29] MEDS: INSULIN ASPART (*BKC) 100 UNITS/ML SUB-Q (17:25)
[2020-08-29 20:31] VITALS: BP 124/46; PULSE 76; RESP 22; TEMP 36.3; O2SAT 100
[2020-08-29 21:22] VITALS: PULSE 104
[2020-08-29] MEDS: lisinopriL 5 MG TABLET PO (21:22)
[2020-08-29] MEDS: PREGABALIN (*CRX) 75 MG CAPSULE 150 MG PO (21:24)
[2020-08-29] MEDS: HYDROcodone/acetaminophen (*CRX) 5-325 MG TABLET 2 TAB PO (21:31)
[2020-08-29 21:51] LABS: Glucose Point of Care 226 (65-105)
[2020-08-30 05:20] VITALS: BP 122/54; PULSE 93; RESP 22; TEMP 36.2; O2SAT 97
[2020-08-30 06:15] LABS: Glucose Point of Care 205 (65-105)
[2020-08-30] MEDS: FUROSEMIDE 20 MG TABLET 60 MG PO (08:59)
[2020-08-30] MEDS: ASPIRIN 81 MG ENTERIC TABLET PO (08:59)
[2020-08-30 09:00] VITALS: PULSE 93
[2020-08-30] MEDS: ISOSORBIDE DINITRATE 10 MG TABLET PO ×2 (09:00→17:25)
[2020-08-30] MEDS: FAMOTIDINE 20 MG TABLET PO (09:00)
[2020-08-30] MEDS: EUCERIN CREAM 120 GM JAR 1 APPLIC TOPICAL ×2 (09:00→21:45)
[2020-08-30] MEDS: SPIRONOLACTONE 25 MG TABLET PO (09:00)
[2020-08-30] MEDS: CLOPIDOGREL BISULFATE 75 MG TABLET PO (09:00)
[2020-08-30] MEDS: METOPROLOL TARTRATE 50 MG TAB PO ×2 (09:00→21:37)
[2020-08-30] MEDS: ATORVASTATIN 40 MG TABLET 80 MG PO (09:00)
[2020-08-30] MEDS: ACETAMINOPHEN 325 MG TABLET 650 MG PO (09:01)
[2020-08-30] MEDS: TOLNAFTATE 1% POWDER 45 GM BTL 1 APPLIC TOPICAL ×2 (09:01→21:44)
[2020-08-30] MEDS: polyethylene glycoL 3350 17 GM POWD.PACK PO ×2 (09:01→17:25)
[2020-08-30] MEDS: INSULIN ASPART (*BKC) 100 UNITS/ML SUB-Q (09:03)
--- NOTE | 2020-08-30 11:51 | WPDNEURORHBP ---
Subjective Date/time seen: 08/30/20 11:51 Interval history: Patient states that he still feeling well. Patient voices no complaints. Review of Systems Review of Systems: All systems reviewed & are unremarkable except as noted in HPI and below Functional Status Transfers Ability Ability to Transfer In/Out of Chair: Maximum Assistance X 2 Exam Narrative: Exam Narrative: Patient is seen during occupational therapy. Patient's overall bed mobility has improved. Patient transfers on the sliding board are minimal assistance. Right wrist remains in a splint. Sitting balance is good. Sitting endurance is good. Heart rate and rhythm is regular lungs are clear abdomen is soft nontender Objective Data Vital Signs Vital Signs: Vital Signs - 24 hr 08/29/20 14:00 08/29/20 20:31 08/29/20 21:22 Temperature 36.3 C L 36.3 C L Pulse Rate 80 76 104 H Respiratory Rate 16 22 H Blood Pressure 112/60 124/46 L Pulse Oximetry 100 100 08/30/20 05:20 08/30/20 09:00 Temperature 36.2 C L Pulse Rate 93 93 Respiratory Rate 22 H Blood Pressure 122/54 L Pulse Oximetry 97 Intake/Output Intake/Output: Intake & Output 08/27/20 08/28/20 08/29/20 08/30/20 23:59 23:59 23:59 23:59 Intake Total 1200 720 720 240 Balance 1200 720 720 240 Meds/Results Medications: Active Medications Generic Name Dose Route Start Last Admin Trade Name Freq PRN Reason Stop Dose Admin Acetaminophen 650 mg 08/21/20 14:06 08/30/20 09:01 Acetaminophen 325 Mg Tablet PO 650 mg Q6H PRN Administration Fever Or Pain Hydrocodone Bitart/Acetaminophen 2 tab 08/21/20 14:06 08/29/20 21:31 Hydrocodone/Acetaminophen (*Crx) 5-325 Mg Tablet PO 2 tab Q4H PRN Administration Pain Rated 7-10 Hydrocodone Bitart/Acetaminophen 1 tab 08/29/20 09:13 08/29/20 14:35 Hydrocodone/Acetaminophen (*Crx) 5-325 Mg Tablet PO 1 tab Q4H PRN Administration Pain Rated 4-6 Artificial Tears 1 drop 08/27/20 13:00 08/30/20 08:59 Artificial Tears Op Soln 15 Ml Bottle EACH EYE 1 drop QID [facility] Administration Aspirin 81 mg 08/22/20 09:00 08/30/20 08:59 Aspirin 81 Mg Enteric Tablet PO 81 mg DAILY [facility] Administration Atorvastatin Calcium 80 mg 08/22/20 09:00 08/30/20 09:00 Atorvastatin 40 Mg Tablet PO 80 mg DAILY [facility] Administration Benzonatate 100 mg 08/21/20 14:06 Benzonatate 100 Mg Capsule PO Q8H PRN Cough Bisacodyl 10 mg 08/21/20 14:06 08/29/20 12:56 Bisacodyl 5 Mg Tablet Ec PO 10 mg DAILY PRN Administration Constipation Clopidogrel Bisulfate 75 mg 08/22/20 09:00 08/30/20 09:00 Clopidogrel Bisulfate 75 Mg Tablet PO 75 mg DAILY [facility] Administration Dextrose 12.5 gm 08/21/20 14:07 Dextrose 50% 25 Gm/50 Ml Syringe IV PUSH PRN PRN Hypoglycemia Protocol Docusate Sodium 100 mg 08/21/20 14:06 Docusate Sodium 100 Mg Capsule PO Q12H PRN Constipation Famotidine 20 mg 08/22/20 09:00 08/30/20 09:00 Famotidine 20 Mg Tablet PO 20 mg DAILY [facility] Administration Furosemide 60 mg 08/24/20 09:00 08/30/20 08:59 Furosemide 20 Mg Tablet PO 60 mg DAILY [facility] Administration Glucagon 1 mg 08/21/20 14:07 Glucagon For Inj 1 Mg Vial IM PRN PRN Hypoglycemia Protocol Glucose 15 gm 08/21/20 14:07 Glucose Oral Gel 15 Gm Of Glucse In 37.5 Gm Tube PO PRN PRN Hypoglycemia Protocol Dextrose 1,000 mls @ 100 mls/hr 08/21/20 14:07 Dextrose 5% 1,000 Ml IVPB PRN PRN Hypoglycemia Protocol Insulin Aspart 4 - 8 units 08/21/20 17:00 08/30/20 09:03 Insulin Aspart (*Bkc) 100 Units/Ml SUB-Q 4 units TIDWM [facility] Administration Protocol Isosorbide Dinitrate 10 mg 08/21/20 17:00 08/30/20 09:00 Isosorbide Dinitrate 10 Mg Tablet PO 10 mg BID [facility] Administration Lisinopril 5 mg 08/24/20 21:00 08/29/20 21:22 Lisinopril 5 Mg Tablet PO 5 mg BEDTIME [facility]
[2020-08-30 11:56] LABS: Glucose Point of Care 184 (65-105)
[2020-08-30 14:00] VITALS: BP 119/68; PULSE 72; RESP 18; TEMP 36.4; O2SAT 100
[2020-08-30 17:08] LABS: Glucose Point of Care 217 (65-105)
[2020-08-30 20:22] VITALS: BP 139/78; PULSE 84; RESP 20; TEMP 35.9; O2SAT 100
[2020-08-30 21:37] VITALS: PULSE 82
[2020-08-30 21:37] LABS: Glucose Point of Care 194 (65-105)
[2020-08-30] MEDS: lisinopriL 5 MG TABLET PO (21:37)
[2020-08-30] MEDS: HYDROcodone/acetaminophen (*CRX) 5-325 MG TABLET 2 TAB PO (21:41)
[2020-08-30] MEDS: PREGABALIN (*CRX) 75 MG CAPSULE 150 MG PO (21:44)
[2020-08-31 05:20] VITALS: BP 118/56; PULSE 80; RESP 20; TEMP 36.2; O2SAT 90
[2020-08-31 05:27] LABS: Basophils Absolute Auto 0.1 K/mm3 (0.0-0.1); Basophils Percent Auto 0.6 % (0.2-1.2); Eosinophils Absolute Auto 0.2 K/mm3 (0-0.3); Hematocrit 32.6 % (42.0-52.0); Hemoglobin 10.3 g/dL (14.0-18.0); Immature Granulocyte Absolute 0.09 K/mm3 (0.00-0.031); Immature Granulocyte Percent A 1.1 % (0-0.5); Lymphocytes Absolute Auto 1.73 K/mm3 (0.9-3.2); Lymphocytes Percent Auto 21.5 % (18.3-44.2); Mean Corpuscular HGB Conc 31.6 g/dl (32-36); Mean Corpuscular Hemoglobin 24.7 pg (26-34); Mean Corpuscular Volume 78.2 fl (80-100); Mean Platelet Volume 11.6 fl (7.4-10.4); Monocytes Absolute Auto 0.7 K/mm3 (0.1-0.6); Monocytes Percent Auto 8.5 % (2.6-8.5); Neutrophils Absolute Auto 5.3 K/mm3 (1.3-6.7); Neutrophils Percent Auto 65.3 % (45.5-73.1); Platelet Count Result 324 k/mm3 (150-375); Red Blood Count 4.17 M/mm3 (4.6-6.20); Red Cell Distribution Width 16.2 % (11.5-14.5)
[2020-08-31 05:38] LABS: Anion Gap 7 mmol/L (8-16); Blood Urea Nitrogen 31 mg/dL (9-20); Calcium 8.8 mg/dL (8.4-10.2); Carbon Dioxide 30 mmol/L (22-30); Chloride 99 mmol/L (98-107); Estimated CRCL calculation 74 ml/min; Estimated Glomerular Filt Rate > 60; Glucose 177 mg/dL (75-110); Potassium 4.1 mmol/L (3.4-5.0); Sodium 136 mmol/L (137-145)
[2020-08-31 06:53] LABS: Glucose Point of Care 176 (65-105)
[2020-08-31] MEDS: ATORVASTATIN 40 MG TABLET 80 MG PO ×2 (09:12→09:21)
[2020-08-31] MEDS: FAMOTIDINE 20 MG TABLET PO (09:12)
[2020-08-31] MEDS: FUROSEMIDE 20 MG TABLET 60 MG PO (09:13)
[2020-08-31] MEDS: CLOPIDOGREL BISULFATE 75 MG TABLET PO (09:13)
[2020-08-31] MEDS: ASPIRIN 81 MG ENTERIC TABLET PO (09:13)
[2020-08-31] MEDS: polyethylene glycoL 3350 17 GM POWD.PACK PO ×2 (09:14→16:53)
[2020-08-31] MEDS: ISOSORBIDE DINITRATE 10 MG TABLET PO ×2 (09:14→17:04)
[2020-08-31] MEDS: SPIRONOLACTONE 25 MG TABLET PO (09:14)
[2020-08-31 09:15] VITALS: PULSE 80
[2020-08-31] MEDS: EUCERIN CREAM 120 GM JAR 1 APPLIC TOPICAL ×2 (09:15→21:13)
[2020-08-31] MEDS: TOLNAFTATE 1% POWDER 45 GM BTL 1 APPLIC TOPICAL ×2 (09:15→21:12)
[2020-08-31] MEDS: METOPROLOL TARTRATE 50 MG TAB PO ×2 (09:15→21:11)
[2020-08-31] MEDS: ACETAMINOPHEN 325 MG TABLET 650 MG PO (09:22)
--- NOTE | 2020-08-31 11:59 | WPDNEURORHBP ---
Subjective Date/time seen: 08/31/20 11:59 Interval history: Patient states that he still feeling well. Patient voices no complaints. Patient is pleased with his progress in therapy Review of Systems Review of Systems: All systems reviewed & are unremarkable except as noted in HPI and below ENT: Reports Normal hearing present Neurologic: Reports Normal hearing present Functional Status Transfers Ability Ability to Transfer In/Out of Chair: Maximum Assistance X 2 Exam Narrative: Exam Narrative: Patient is seen during occupational therapy. Patient's overall bed mobility has improved. Patient transfers on the sliding board aresupervision Right wrist remains in a splint. Sitting balance is good. Sitting endurance is good. Heart rate and rhythm is regular lungs are clear abdomen is soft nontender Const: General: cooperative, healthy appearing, comfortable, no acute distress, alert and awake Nutritional Appearance: well nourished and overweight Orientation/consciousness: oriented to person, oriented to place, oriented to time and patient oriented x3 Limitations: physical limitations ( left lower extremity amputee) HENMT: Head: normocephalic Ears: hearing grossly normal bilaterally General nose exam: Normal external nose present Mouth: Yes Normal oral and palatal mucosa present Eyes: Visual Olivas: normal visual olivas by confrontation Alignment and Position: alignment normal Periorbital: periorbital findings abnormal ( right palpebral fissures smaller than the left palpebral fissure) Eyelids: eyelids normal Conjunctivae: conjunctivae normal Sclera: sclerae normal Cornea: corneas normal Pupils: Equal, round and reactive pupils present and Pupils normal by confrontation EOM: EOMs intact bilaterally Direct Ophthalmoscopy: normal light reflex Neck: Neck: full ROM Resp: Effort & Inspection: normal respiratory effort Auscultation: clear to auscultation bilaterally Cardio: Jugular venous distension: no JVD Rate: regular rate Rhythm: regular rhythm GI: Auscultation: normal bowel sounds Neuro: General: oriented to person, oriented to place, oriented to time, patient oriented x3 and moves all extremities Cranial nerves: Yes CN's II-XII intact bilaterally, Yes Equal, round and reactive pupils present, Yes Bilaterally intact EOM present, Yes Nystagmus not present, Yes Normal facial strength present, Yes Midline tongue present, Yes Symmetric palate elevation present, Yes Normal hearing present, Yes Ability to bilaterally rotate head present and Yes Ability to bilaterally elevate shoulders present Cognition (Neuro): normal cognition Speech: normal speech Gait exam (Neuro): Assisted gait required Motor exam (neuro): Pronator motor function not present Deep tendon reflexes (DTR's): Right triceps reflex intensity grade: 1+, Left triceps reflex intensity grade: 1+, Rt Biceps (C5, C6): 1+, Left biceps reflex intensity grade: 1+, Right brachioradialis reflex intensity grade: 1+, Left brachioradialis reflex intensity grade: 1+, Right patellar reflex intensity grade: 1+ and Left patellar reflex intensity grade: 1+ Plantar Reflex Responses: downgoing: right Coordination: [id number] test normal Psych: Appearance: grossly normal Speech and movement: Normal speech and movement present Affect: normal affect Attitude: cooperative Thought process: Normal thought process present Insight: Good insight present (Psych) Judgement: Good judgement present (Psych) Objective Data Vital Signs Vital Signs: Vital Signs - 24 hr 08/30/20 14:00 08/30/20 20:22 08/30/20 21:37 Temperature 36.4 C 35.9 C L Pulse Rate 72 84 82 Respiratory Rate 18 20 Blood Pressure 119/68 139/78 Pulse Oximetry 100 100 08/31/20 05:20 08/31/20 09:15 Temperature 36.2 C L Pulse Rate 80 80 Respiratory Rate 20 Blood Pressure 118/56 L Pulse Oximetry 90 Intake/Output Intake/Output: Intake & Output 08/28/20 08/29/20 08/30/20 08/31/20 23:59 23:
[2020-08-31 12:01] LABS: Glucose Point of Care 169 (65-105)
[2020-08-31 14:00] VITALS: BP 121/58; PULSE 86; RESP 18; TEMP 36.4; O2SAT 96
[2020-08-31] MEDS: HYDROcodone/acetaminophen (*CRX) 5-325 MG TABLET 1 TAB PO (16:49)
[2020-08-31 16:59] LABS: Glucose Point of Care 213 (65-105)
[2020-08-31] MEDS: INSULIN ASPART (*BKC) 100 UNITS/ML SUB-Q (17:02)
[2020-08-31 20:00] VITALS: PULSE 86; RESP 18; O2SAT 96
[2020-08-31 21:03] LABS: Glucose Point of Care 191 (65-105)
[2020-08-31 21:11] VITALS: PULSE 80
[2020-08-31] MEDS: PREGABALIN (*CRX) 75 MG CAPSULE 150 MG PO (21:12)
[2020-08-31] MEDS: lisinopriL 5 MG TABLET PO (21:12)
[2020-08-31 22:00] VITALS: BP 127/70; PULSE 80; RESP 16; TEMP 35.9; O2SAT 100
[2020-09-01] MEDS: HYDROcodone/acetaminophen (*CRX) 5-325 MG TABLET 1 TAB PO ×2 (00:21→21:15)
[2020-09-01 04:55] VITALS: BP 112/60; PULSE 70; RESP 14; TEMP 35.9; O2SAT 97
[2020-09-01 06:46] LABS: Glucose Point of Care 119 (65-105)
[2020-09-01] MEDS: FUROSEMIDE 20 MG TABLET 60 MG PO (08:53)
[2020-09-01] MEDS: CLOPIDOGREL BISULFATE 75 MG TABLET PO (08:53)
[2020-09-01] MEDS: SPIRONOLACTONE 25 MG TABLET PO (08:53)
[2020-09-01] MEDS: ISOSORBIDE DINITRATE 10 MG TABLET PO ×2 (08:53→17:25)
[2020-09-01] MEDS: ASPIRIN 81 MG ENTERIC TABLET PO (08:53)
[2020-09-01 08:54] VITALS: PULSE 70
[2020-09-01] MEDS: TOLNAFTATE 1% POWDER 45 GM BTL 1 APPLIC TOPICAL ×2 (08:54→21:15)
[2020-09-01] MEDS: METOPROLOL TARTRATE 50 MG TAB PO ×2 (08:54→21:12)
[2020-09-01] MEDS: polyethylene glycoL 3350 17 GM POWD.PACK PO ×2 (08:54→17:26)
[2020-09-01] MEDS: EUCERIN CREAM 120 GM JAR 1 APPLIC TOPICAL ×2 (08:54→21:16)
[2020-09-01] MEDS: FAMOTIDINE 20 MG TABLET PO (08:54)
[2020-09-01] MEDS: ACETAMINOPHEN 325 MG TABLET 650 MG PO (09:06)
--- NOTE | 2020-09-01 09:50 | WPDNEURORHBP ---
Subjective Date/time seen: 09/01/20 09:50 Interval history: Patient states that he still feeling well. Patient voices no complaints. Patient is pleased with his progress in therapy. Patient is seen in his room prforming bathing activity Review of Systems Review of Systems: All systems reviewed & are unremarkable except as noted in HPI and below Functional Status Transfers Ability Ability to Transfer In/Out of Chair: Maximum Assistance X 2 Exam Narrative: Exam Narrative: Patient is seen during bathing activities. Patient has good sitting balance. Heart rate and rhythm is regular. Lungs are clear to auscultation. Abdomen is obese. Upper extremity strength are 5/5. Right stump is wrapped with Sarmad wrappings. Left lower extremity strength is 4/5. Lateral aspect of the heel is noted unchanged from prior exam. Overall endurance has markedly improved. Transfers are improving currently at Min to standby assistance with sliding board transfers. Objective Data Vital Signs Vital Signs: Vital Signs - 24 hr 08/31/20 14:00 08/31/20 20:00 08/31/20 21:11 Temperature 36.4 C Pulse Rate 86 86 80 Respiratory Rate 18 18 Blood Pressure 121/58 L Pulse Oximetry 96 96 08/31/20 22:00 09/01/20 04:55 09/01/20 08:54 Temperature 35.9 C L 35.9 C L Pulse Rate 80 70 70 Respiratory Rate 16 14 Blood Pressure 127/70 112/60 Pulse Oximetry 100 97 Intake/Output Intake/Output: Intake & Output 08/29/20 08/30/20 08/31/20 09/01/20 23:59 23:59 23:59 23:59 Intake Total 720 720 720 240 Balance 720 720 720 240 Meds/Results Medications: Active Medications Generic Name Dose Route Start Last Admin Trade Name Freq PRN Reason Stop Dose Admin Acetaminophen 650 mg 08/21/20 14:06 09/01/20 09:06 Acetaminophen 325 Mg Tablet PO 650 mg Q6H PRN Administration Fever Or Pain Hydrocodone Bitart/Acetaminophen 2 tab 08/21/20 14:06 08/30/20 21:41 Hydrocodone/Acetaminophen (*Crx) 5-325 Mg Tablet PO 2 tab Q4H PRN Administration Pain Rated 7-10 Hydrocodone Bitart/Acetaminophen 1 tab 08/29/20 09:13 09/01/20 00:21 Hydrocodone/Acetaminophen (*Crx) 5-325 Mg Tablet PO 1 tab Q4H PRN Administration Pain Rated 4-6 Artificial Tears 1 drop 08/27/20 13:00 09/01/20 08:54 Artificial Tears Op Soln 15 Ml Bottle EACH EYE 1 drop QID [facility] Administration Aspirin 81 mg 08/22/20 09:00 09/01/20 08:53 Aspirin 81 Mg Enteric Tablet PO 81 mg DAILY [facility] Administration Atorvastatin Calcium 80 mg 08/22/20 09:00 08/31/20 09:21 Atorvastatin 40 Mg Tablet PO 80 mg DAILY [facility] Administration Benzonatate 100 mg 08/21/20 14:06 Benzonatate 100 Mg Capsule PO Q8H PRN Cough Bisacodyl 10 mg 08/21/20 14:06 08/29/20 12:56 Bisacodyl 5 Mg Tablet Ec PO 10 mg DAILY PRN Administration Constipation Clopidogrel Bisulfate 75 mg 08/22/20 09:00 09/01/20 08:53 Clopidogrel Bisulfate 75 Mg Tablet PO 75 mg DAILY [facility] Administration Dextrose 12.5 gm 08/21/20 14:07 Dextrose 50% 25 Gm/50 Ml Syringe IV PUSH PRN PRN Hypoglycemia Protocol Docusate Sodium 100 mg 08/21/20 14:06 Docusate Sodium 100 Mg Capsule PO Q12H PRN Constipation Famotidine 20 mg 08/22/20 09:00 09/01/20 08:54 Famotidine 20 Mg Tablet PO 20 mg DAILY [facility] Administration Furosemide 60 mg 08/24/20 09:00 09/01/20 08:53 Furosemide 20 Mg Tablet PO 60 mg DAILY [facility] Administration Glucagon 1 mg 08/21/20 14:07 Glucagon For Inj 1 Mg Vial IM PRN PRN Hypoglycemia Protocol Glucose 15 gm 08/21/20 14:07 Glucose Oral Gel 15 Gm Of Glucse In 37.5 Gm Tube PO PRN PRN Hypoglycemia Protocol Dextrose 1,000 mls @ 100 mls/hr 08/21/20 14:07 Dextrose 5% 1,000 Ml IVPB PRN PRN Hypoglycemia Protocol Insulin Aspart 4 - 8 units 08/21/20 17:00 09/01/20 07:34 Insulin Aspart (*Bkc) 100 Units/Ml SUB-Q Not Given
[2020-09-01 11:51] LABS: Glucose Point of Care 103 (65-105)
[2020-09-01 14:00] VITALS: BP 104/57; PULSE 72; RESP 18; TEMP 36.6; O2SAT 100
[2020-09-01 16:51] LABS: Glucose Point of Care 158 (65-105)
[2020-09-01 21:12] VITALS: PULSE 96
[2020-09-01] MEDS: PREGABALIN (*CRX) 75 MG CAPSULE 150 MG PO (21:13)
[2020-09-01] MEDS: lisinopriL 5 MG TABLET PO (21:13)
[2020-09-01 21:55] LABS: Glucose Point of Care 163 (65-105)
[2020-09-01 22:00] VITALS: BP 139/68; PULSE 92; RESP 18; TEMP 36.3; O2SAT 99
[2020-09-02] MEDS: HYDROcodone/acetaminophen (*CRX) 5-325 MG TABLET 1 TAB PO (02:02)
[2020-09-02 06:00] VITALS: BP 125/88; PULSE 80; RESP 18; TEMP 36.4; O2SAT 99
[2020-09-02 06:53] LABS: Glucose Point of Care 156 (65-105)
[2020-09-02 08:28] VITALS: PULSE 92
[2020-09-02] MEDS: FUROSEMIDE 20 MG TABLET 60 MG PO (08:28)
[2020-09-02] MEDS: ASPIRIN 81 MG ENTERIC TABLET PO (08:28)
[2020-09-02] MEDS: ISOSORBIDE DINITRATE 10 MG TABLET PO ×2 (08:28→16:52)
[2020-09-02] MEDS: CLOPIDOGREL BISULFATE 75 MG TABLET PO (08:28)
[2020-09-02] MEDS: ATORVASTATIN 40 MG TABLET 80 MG PO (08:28)
[2020-09-02] MEDS: METOPROLOL TARTRATE 50 MG TAB PO ×2 (08:28→21:04)
[2020-09-02] MEDS: FAMOTIDINE 20 MG TABLET PO (08:28)
[2020-09-02] MEDS: SPIRONOLACTONE 25 MG TABLET PO (08:28)
[2020-09-02] MEDS: polyethylene glycoL 3350 17 GM POWD.PACK PO (08:29)
[2020-09-02] MEDS: EUCERIN CREAM 120 GM JAR 1 APPLIC TOPICAL ×2 (08:29→21:05)
[2020-09-02] MEDS: TOLNAFTATE 1% POWDER 45 GM BTL 1 APPLIC TOPICAL (08:30)
[2020-09-02] MEDS: ACETAMINOPHEN 325 MG TABLET 650 MG PO (08:36)
--- NOTE | 2020-09-02 08:36 | WPDNEURORHBP ---
Subjective Date/time seen: 09/02/20 08:36 Interval history: Patient is doing well. Patient voices no complaint Review of Systems Review of Systems: All systems reviewed & are unremarkable except as noted in HPI and below Exam Narrative: Exam Narrative: Right eye reveals no redness is morning. Speech is fluent. Heart rate and rhythm is regular. Lungs are clear to auscultation. Overall mobility is markedly improving. Transfers now are minimal assistance with sliding board. Patient is improving with bathing and dressing. Patient still struggles with lower extremity bathing and dressing Objective Data Vital Signs Vital Signs: Vital Signs - 24 hr 09/01/20 08:54 09/01/20 14:00 09/01/20 21:12 Temperature 36.6 C Pulse Rate 70 72 96 Respiratory Rate 18 Blood Pressure 104/57 L Pulse Oximetry 100 09/01/20 22:00 09/02/20 06:00 09/02/20 08:28 Temperature 36.3 C L 36.4 C L Pulse Rate 92 80 92 Respiratory Rate 18 18 Blood Pressure 139/68 125/88 Pulse Oximetry 99 99 Intake/Output Intake/Output: Intake & Output 08/30/20 08/31/20 09/01/20 09/02/20 23:59 23:59 23:59 23:59 Intake Total 720 720 840 Balance 720 720 840 Meds/Results Medications: Active Medications Generic Name Dose Route Start Last Admin Trade Name Freq PRN Reason Stop Dose Admin Acetaminophen 650 mg 08/21/20 14:06 09/01/20 09:06 Acetaminophen 325 Mg Tablet PO 650 mg Q6H PRN Administration Fever Or Pain Hydrocodone Bitart/Acetaminophen 2 tab 08/21/20 14:06 08/30/20 21:41 Hydrocodone/Acetaminophen (*Crx) 5-325 Mg Tablet PO 2 tab Q4H PRN Administration Pain Rated 7-10 Hydrocodone Bitart/Acetaminophen 1 tab 08/29/20 09:13 09/02/20 02:02 Hydrocodone/Acetaminophen (*Crx) 5-325 Mg Tablet PO 1 tab Q4H PRN Administration Pain Rated 4-6 Artificial Tears 1 drop 08/27/20 13:00 09/01/20 21:13 Artificial Tears Op Soln 15 Ml Bottle EACH EYE 1 drop QID PHUC Administration Aspirin 81 mg 08/22/20 09:00 09/02/20 08:28 Aspirin 81 Mg Enteric Tablet PO 81 mg DAILY PHUC Administration Atorvastatin Calcium 80 mg 08/22/20 09:00 09/02/20 08:28 Atorvastatin 40 Mg Tablet PO 80 mg DAILY [facility] Administration Benzonatate 100 mg 08/21/20 14:06 Benzonatate 100 Mg Capsule PO Q8H PRN Cough Bisacodyl 10 mg 08/21/20 14:06 08/29/20 12:56 Bisacodyl 5 Mg Tablet Ec PO 10 mg DAILY PRN Administration Constipation Clopidogrel Bisulfate 75 mg 08/22/20 09:00 09/02/20 08:28 Clopidogrel Bisulfate 75 Mg Tablet PO 75 mg DAILY PHUC Administration Dextrose 12.5 gm 08/21/20 14:07 Dextrose 50% 25 Gm/50 Ml Syringe IV PUSH PRN PRN Hypoglycemia Protocol Docusate Sodium 100 mg 08/21/20 14:06 Docusate Sodium 100 Mg Capsule PO Q12H PRN Constipation Famotidine 20 mg 08/22/20 09:00 09/02/20 08:28 Famotidine 20 Mg Tablet PO 20 mg DAILY PHUC Administration Furosemide 60 mg 08/24/20 09:00 09/02/20 08:28 Furosemide 20 Mg Tablet PO 60 mg DAILY [facility] Administration Glucagon 1 mg 08/21/20 14:07 Glucagon For Inj 1 Mg Vial IM PRN PRN Hypoglycemia Protocol Glucose 15 gm 08/21/20 14:07 Glucose Oral Gel 15 Gm Of Glucse In 37.5 Gm Tube PO PRN PRN Hypoglycemia Protocol Dextrose 1,000 mls @ 100 mls/hr 08/21/20 14:07 Dextrose 5% 1,000 Ml IVPB PRN PRN Hypoglycemia Protocol Insulin Aspart 4 - 8 units 08/21/20 17:00 09/01/20 17:30 Insulin Aspart (*Bkc) 100 Units/Ml SUB-Q Not Given TIDWM [facility] Protocol Insulin Aspart 20 units 08/30/20 17:00 09/01/20 17:30 Insuln Asp Prt/Insulin Aspart 100 Units/MlNovolog Mix(*Bkc) SUB-Q 20 units 0800,1700 PHUC Administration Isosorbide Dinitrate 10 mg 08/21/20 17:00 09/02/20 08:28 Isosorbide Dinitrate 10 Mg Tablet PO 10 mg BID PHUC Administration Lisinopril 5 mg 08/24/20 21:00 03
[2020-09-02 12:00] LABS: Glucose Point of Care 182 (65-105)
[2020-09-02 14:00] VITALS: BP 103/55; PULSE 73; RESP 16; TEMP 36.2; O2SAT 100
[2020-09-02 16:44] LABS: Glucose Point of Care 195 (65-105)
[2020-09-02 20:15] LABS: Glucose Point of Care 165 (65-105)
[2020-09-02] MEDS: lisinopriL 5 MG TABLET PO (21:02)
[2020-09-02 21:04] VITALS: PULSE 73
[2020-09-02] MEDS: PREGABALIN (*CRX) 75 MG CAPSULE 150 MG PO (21:06)
[2020-09-02] MEDS: HYDROcodone/acetaminophen (*CRX) 5-325 MG TABLET 2 TAB PO (21:17)
[2020-09-02 22:00] VITALS: BP 129/81; PULSE 69; RESP 18; TEMP 36; O2SAT 100
[2020-09-03] VITALS (8 sets, daily range): BP systolic 117–145; BP diastolic 57–74; PULSE 76–81; RESP 16–20; TEMP 36.1–36.6; O2SAT 100
[2020-09-03 04:41] LABS: Basophils Absolute Auto 0.1 K/mm3 (0.0-0.1); Basophils Percent Auto 0.6 % (0.2-1.2); Eosinophils Absolute Auto 0.3 K/mm3 (0-0.3); Eosinophils Percent Auto 3.4 % (0-4.4); Hematocrit 32.2 % (42.0-52.0); Hemoglobin 10.1 g/dL (14.0-18.0); Immature Granulocyte Absolute 0.06 K/mm3 (0.00-0.031); Immature Granulocyte Percent A 0.8 % (0-0.5); Lymphocytes Absolute Auto 1.72 K/mm3 (0.9-3.2); Lymphocytes Percent Auto 21.8 % (18.3-44.2); Mean Corpuscular HGB Conc 31.4 g/dl (32-36); Mean Corpuscular Hemoglobin 24.6 pg (26-34); Mean Corpuscular Volume 78.5 fl (80-100); Mean Platelet Volume 10.7 fl (7.4-10.4); Monocytes Absolute Auto 0.9 K/mm3 (0.1-0.6); Monocytes Percent Auto 11.7 % (2.6-8.5); Neutrophils Absolute Auto 4.9 K/mm3 (1.3-6.7); Neutrophils Percent Auto 61.7 % (45.5-73.1); Platelet Count Result 294 k/mm3 (150-375); Red Cell Distribution Width 16.3 % (11.5-14.5); White Blood Count 7.9 K/mm3 (4.5-10.0)
[2020-09-03 04:56] LABS: Anion Gap 7 mmol/L (8-16); Blood Urea Nitrogen 28 mg/dL (9-20); Calcium 8.7 mg/dL (8.4-10.2); Carbon Dioxide 30 mmol/L (22-30); Chloride 101 mmol/L (98-107); Estimated CRCL calculation 74 ml/min; Estimated Glomerular Filt Rate > 60; Glucose 123 mg/dL (75-110); Sodium 138 mmol/L (137-145)
[2020-09-03 06:17] LABS: Glucose Point of Care 108 (65-105)
[2020-09-03] MEDS: EUCERIN CREAM 120 GM JAR 1 APPLIC TOPICAL ×2 (08:41→21:25)
[2020-09-03] MEDS: FAMOTIDINE 20 MG TABLET PO (08:41)
[2020-09-03] MEDS: SPIRONOLACTONE 25 MG TABLET PO (08:41)
[2020-09-03] MEDS: CLOPIDOGREL BISULFATE 75 MG TABLET PO (08:41)
[2020-09-03] MEDS: ISOSORBIDE DINITRATE 10 MG TABLET PO ×2 (08:41→17:31)
[2020-09-03] MEDS: FUROSEMIDE 20 MG TABLET 60 MG PO (08:41)
[2020-09-03] MEDS: ASPIRIN 81 MG ENTERIC TABLET PO (08:41)
[2020-09-03] MEDS: ATORVASTATIN 40 MG TABLET 80 MG PO (08:41)
[2020-09-03] MEDS: polyethylene glycoL 3350 17 GM POWD.PACK PO (08:42)
[2020-09-03] MEDS: TOLNAFTATE 1% POWDER 45 GM BTL 1 APPLIC TOPICAL ×2 (08:42→21:28)
[2020-09-03] MEDS: ACETAMINOPHEN 325 MG TABLET 650 MG PO ×2 (08:45→14:22)
[2020-09-03] MEDS: METOPROLOL TARTRATE 50 MG TAB PO ×2 (10:47→21:37)
--- NOTE | 2020-09-03 11:49 | WPDNEURORHBP ---
Subjective Date/time seen: 09/03/20 11:49 Interval history: Patient is doing well. Patient voices no complaint. will be in for caregiver training Review of Systems Review of Systems: All systems reviewed & are unremarkable except as noted in HPI and below Functional Status Transfers Ability Ability to Transfer In/Out of Chair: Maximum Assistance X 2 Exam Narrative: Exam Narrative: Right eye reveals no redness is morning. Speech is fluent. Heart rate and rhythm is regular. Lungs are clear to auscultation. Overall mobility is markedly improving. Transfers now are SBA with sliding board. Patient is improving with bathing and dressing. Patient still struggles with lower extremity bathing and dressing Objective Data Vital Signs Vital Signs: Vital Signs - 24 hr 09/02/20 14:00 09/02/20 21:04 09/02/20 22:00 Temperature 36.2 C L 36.0 C L Pulse Rate 73 73 69 Respiratory Rate 16 18 Blood Pressure 103/55 L 129/81 Pulse Oximetry 100 100 09/03/20 06:00 09/03/20 08:00 09/03/20 08:45 Temperature 36.1 C L 36.1 C L Pulse Rate 81 81 Respiratory Rate 16 16 Blood Pressure 130/73 Pulse Oximetry 100 100 09/03/20 10:47 Temperature Pulse Rate 81 Respiratory Rate Blood Pressure Pulse Oximetry Intake/Output Intake/Output: Intake & Output 08/31/20 09/01/20 09/02/20 09/03/20 23:59 23:59 23:59 23:59 Intake Total 089 668 1612 480 Balance 630 236 4228 480 Meds/Results Medications: Active Medications Generic Name Dose Route Start Last Admin Trade Name Freq PRN Reason Stop Dose Admin Acetaminophen 650 mg 08/21/20 14:06 09/03/20 08:45 Acetaminophen 325 Mg Tablet PO 650 mg Q6H PRN Administration Fever Or Pain Hydrocodone Bitart/Acetaminophen 2 tab 08/21/20 14:06 09/02/20 21:17 Hydrocodone/Acetaminophen (*Crx) 5-325 Mg Tablet PO 2 tab Q4H PRN Administration Pain Rated 7-10 Hydrocodone Bitart/Acetaminophen 1 tab 08/29/20 09:13 09/02/20 02:02 Hydrocodone/Acetaminophen (*Crx) 5-325 Mg Tablet PO 1 tab Q4H PRN Administration Pain Rated 4-6 Artificial Tears 1 drop 08/27/20 13:00 09/03/20 08:42 Artificial Tears Op Soln 15 Ml Bottle EACH EYE 1 drop QID PHUC Administration Aspirin 81 mg 08/22/20 09:00 09/03/20 08:41 Aspirin 81 Mg Enteric Tablet PO 81 mg DAILY [facility] Administration Atorvastatin Calcium 80 mg 08/22/20 09:00 09/03/20 08:41 Atorvastatin 40 Mg Tablet PO 80 mg DAILY [facility] Administration Benzonatate 100 mg 08/21/20 14:06 Benzonatate 100 Mg Capsule PO Q8H PRN Cough Bisacodyl 10 mg 08/21/20 14:06 08/29/20 12:56 Bisacodyl 5 Mg Tablet Ec PO 10 mg DAILY PRN Administration Constipation Clopidogrel Bisulfate 75 mg 08/22/20 09:00 09/03/20 08:41 Clopidogrel Bisulfate 75 Mg Tablet PO 75 mg DAILY PHUC Administration Dextrose 12.5 gm 08/21/20 14:07 Dextrose 50% 25 Gm/50 Ml Syringe IV PUSH PRN PRN Hypoglycemia Protocol Docusate Sodium 100 mg 08/21/20 14:06 Docusate Sodium 100 Mg Capsule PO Q12H PRN Constipation Famotidine 20 mg 08/22/20 09:00 09/03/20 08:41 Famotidine 20 Mg Tablet PO 20 mg DAILY PHUC Administration Furosemide 60 mg 08/24/20 09:00 09/03/20 08:41 Furosemide 20 Mg Tablet PO 60 mg DAILY [facility]UC Administration Glucagon 1 mg 08/21/20 14:07 Glucagon For Inj 1 Mg Vial IM PRN PRN Hypoglycemia Protocol Glucose 15 gm 08/21/20 14:07 Glucose Oral Gel 15 Gm Of Glucse In 37.5 Gm Tube PO PRN PRN Hypoglycemia Protocol Dextrose 1,000 mls @ 100 mls/hr 08/21/20 14:07 Dextrose 5% 1,000 Ml IVPB PRN PRN Hypoglycemia Protocol Insulin Aspart 4 - 8 units 08/21/20 17:00 09/03/20 08:42 Insulin Aspart (*Bkc) 100 Units/Ml SUB-Q Not Given TIDWM [facility] Protocol Insulin Aspart 22 units 09/02/20 17:00 09/03/20 08:47 Insuln Asp Prt/Insulin Aspart 100 Units/Ml
--- NOTE | 2020-09-03 11:59 | PCOTNOTE ---
It is recommended that this patient, Salvatore Elmore, have a drop-arm commode for home use. Mr. Elmore is currently non-ambulatory, wheelchair dependent, and requires use of a sliding board to transfer due to a right below knee amputation. He is also room confined with the inability to access his toilet at home and will thus require use of a drop-arm commode. Mr. Elmore also has further impairments of left lower extremity weakness and decreased endurance and balance. A drop-arm commode is recommended for home use in order to provide optimal safety and independence with toileting tasks and transfers. The drop-arm commode will resolve patient's mobility limitations and will provide safe access to a toilet within his home. I agree with and certify that the above recommendation is medically necessary. Referring Physician Date
[2020-09-03 12:18] LABS: Glucose Point of Care 114 (65-105)
[2020-09-03] MEDS: HYDROcodone/acetaminophen (*CRX) 5-325 MG TABLET 1 TAB PO (16:05)
[2020-09-03 17:04] LABS: Glucose Point of Care 159 (65-105)
[2020-09-03] MEDS: lisinopriL 5 MG TABLET PO (21:24)
[2020-09-03] MEDS: PREGABALIN (*CRX) 75 MG CAPSULE 150 MG PO (21:24)
[2020-09-03 22:04] LABS: Glucose Point of Care 210 (65-105)
[2020-09-04] MEDS: HYDROcodone/acetaminophen (*CRX) 5-325 MG TABLET 1 TAB PO (01:55)
[2020-09-04 06:00] VITALS: BP 130/78; PULSE 92; RESP 16; TEMP 36.1; O2SAT 98
[2020-09-04 06:52] LABS: Glucose Point of Care 136 (65-105)
[2020-09-04 08:00] VITALS: PULSE 92; RESP 16; O2SAT 98
[2020-09-04] MEDS: ATORVASTATIN 40 MG TABLET 80 MG PO (08:28)
[2020-09-04 08:29] VITALS: PULSE 92
[2020-09-04] MEDS: ASPIRIN 81 MG ENTERIC TABLET PO (08:29)
[2020-09-04] MEDS: CLOPIDOGREL BISULFATE 75 MG TABLET PO (08:29)
[2020-09-04] MEDS: FUROSEMIDE 20 MG TABLET 60 MG PO (08:29)
[2020-09-04] MEDS: SPIRONOLACTONE 25 MG TABLET PO (08:29)
[2020-09-04] MEDS: METOPROLOL TARTRATE 50 MG TAB PO ×2 (08:29→20:58)
[2020-09-04] MEDS: ISOSORBIDE DINITRATE 10 MG TABLET PO ×2 (08:29→17:13)
[2020-09-04] MEDS: FAMOTIDINE 20 MG TABLET PO (08:29)
[2020-09-04] MEDS: EUCERIN CREAM 120 GM JAR 1 APPLIC TOPICAL ×2 (08:30→21:08)
[2020-09-04] MEDS: TOLNAFTATE 1% POWDER 45 GM BTL 1 APPLIC TOPICAL ×2 (09:44→21:08)
[2020-09-04] MEDS: ACETAMINOPHEN 325 MG TABLET 650 MG PO (10:15)
[2020-09-04 12:03] LABS: Glucose Point of Care 128 (65-105)
--- NOTE | 2020-09-04 13:41 | WPDNEURORHBP ---
Subjective Date/time seen: 09/04/20 13:41 Interval history: Patient is doing well. Patient voices no complaint. has been in for caregiver training. Patient and feeling prepared for discharge Review of Systems Review of Systems: All systems reviewed & are unremarkable except as noted in HPI and below Functional Status Transfers Ability Ability to Transfer In/Out of Chair: Maximum Assistance X 2 Exam Narrative: Exam Narrative: Right eye reveals no redness is morning. Speech is fluent. Heart rate and rhythm is regular. Lungs are clear to auscultation. Overall mobility is markedly improving. Bed mobility is independent. Transfers are standby assistance with sliding board. No gait has been attempted. Grooming and hygiene are modified independent. Dressing in bed requires minimal assistance to the lower extremities. Bathing in bed is minimal assistance to the lower extremities. Toileting is max assistance patient cannot perform clothing management. Patient performs a slide board transfer to a drop-arm commode for toileting at a contact guard level. was in for training and did well. Objective Data Vital Signs Vital Signs: Vital Signs - 24 hr 09/03/20 14:00 09/03/20 14:22 09/03/20 21:18 Temperature 36.6 C 36.1 C L 36.4 C L Pulse Rate 76 77 Respiratory Rate 20 20 Blood Pressure 117/57 L 145/74 H Pulse Oximetry 100 100 09/03/20 21:37 09/04/20 06:00 09/04/20 08:00 Temperature 36.1 C L Pulse Rate 77 92 92 Respiratory Rate 16 16 Blood Pressure 130/78 Pulse Oximetry 98 98 09/04/20 08:29 Temperature Pulse Rate 92 Respiratory Rate Blood Pressure Pulse Oximetry Intake/Output Intake/Output: Intake & Output 09/01/20 09/02/20 09/03/20 09/04/20 23:59 23:59 23:59 23:59 Intake Total 840 1440 1070 960 Balance 840 1440 1070 960 Meds/Results Medications: Active Medications Generic Name Dose Route Start Last Admin Trade Name Freq PRN Reason Stop Dose Admin Acetaminophen 650 mg 08/21/20 14:06 09/04/20 10:15 Acetaminophen 325 Mg Tablet PO 650 mg Q6H PRN Administration Fever Or Pain Hydrocodone Bitart/Acetaminophen 2 tab 08/21/20 14:06 09/02/20 21:17 Hydrocodone/Acetaminophen (*Crx) 5-325 Mg Tablet PO 2 tab Q4H PRN Administration Pain Rated 7-10 Hydrocodone Bitart/Acetaminophen 1 tab 08/29/20 09:13 09/04/20 01:55 Hydrocodone/Acetaminophen (*Crx) 5-325 Mg Tablet PO 1 tab Q4H PRN Administration Pain Rated 4-6 Artificial Tears 1 drop 08/27/20 13:00 09/04/20 12:32 Artificial Tears Op Soln 15 Ml Bottle EACH EYE Not Given QID [facility] Aspirin 81 mg 08/22/20 09:00 09/04/20 08:29 Aspirin 81 Mg Enteric Tablet PO 81 mg DAILY [facility] Administration Atorvastatin Calcium 80 mg 08/22/20 09:00 09/04/20 08:28 Atorvastatin 40 Mg Tablet PO 80 mg DAILY [facility] Administration Benzonatate 100 mg 08/21/20 14:06 Benzonatate 100 Mg Capsule PO Q8H PRN Cough Bisacodyl 10 mg 08/21/20 14:06 08/29/20 12:56 Bisacodyl 5 Mg Tablet Ec PO 10 mg DAILY PRN Administration Constipation Clopidogrel Bisulfate 75 mg 08/22/20 09:00 09/04/20 08:29 Clopidogrel Bisulfate 75 Mg Tablet PO 75 mg DAILY [facility] Administration Dextrose 12.5 gm 08/21/20 14:07 Dextrose 50% 25 Gm/50 Ml Syringe IV PUSH PRN PRN Hypoglycemia Protocol Docusate Sodium 100 mg 08/21/20 14:06 Docusate Sodium 100 Mg Capsule PO Q12H PRN Constipation Famotidine 20 mg 08/22/20 09:00 09/04/20 08:29 Famotidine 20 Mg Tablet PO 20 mg DAILY [facility]UC Administration Furosemide 60 mg 08/24/20 09:00 09/04/20 08:29 Furosemide 20 Mg Tablet PO 60 mg DAILY [facility] Administration Glucagon 1 mg 08/21/20 14:07 Glucagon For Inj 1 Mg Vial IM PRN PRN Hypoglycemia Protocol Glucose 15 gm 08/21/20 14:07 Glucose Oral Gel 15 Gm Of Glucse In 37.5 Gm Tube PO PRN PRN Hypo
[2020-09-04 14:00] VITALS: BP 97/58; PULSE 78; RESP 18; TEMP 36.7; O2SAT 100
[2020-09-04 17:12] LABS: Glucose Point of Care 197 (65-105)
[2020-09-04] MEDS: PREGABALIN (*CRX) 75 MG CAPSULE 150 MG PO (20:57)
[2020-09-04 20:58] VITALS: PULSE 66
[2020-09-04] MEDS: lisinopriL 5 MG TABLET PO (21:07)
[2020-09-04] MEDS: HYDROcodone/acetaminophen (*CRX) 5-325 MG TABLET 2 TAB PO (21:17)
[2020-09-04 22:00] VITALS: BP 132/66; PULSE 76; TEMP 36.6; O2SAT 100
[2020-09-04 22:03] LABS: Glucose Point of Care 225 (65-105)
[2020-09-05] MEDS: HYDROcodone/acetaminophen (*CRX) 5-325 MG TABLET 2 TAB PO ×2 (02:20→21:15)
[2020-09-05 06:00] VITALS: BP 132/72; PULSE 82; RESP 18; TEMP 36.3; O2SAT 98
[2020-09-05 06:58] LABS: Glucose Point of Care 130 (65-105)
[2020-09-05 07:55] LABS: Basophils Absolute Auto 0.1 K/mm3 (0.0-0.1); Basophils Percent Auto 0.8 % (0.2-1.2); Eosinophils Absolute Auto 0.3 K/mm3 (0-0.3); Hematocrit 33.4 % (42.0-52.0); Hemoglobin 10.6 g/dL (14.0-18.0); Immature Granulocyte Absolute 0.04 K/mm3 (0.00-0.031); Immature Granulocyte Percent A 0.5 % (0-0.5); Lymphocytes Absolute Auto 1.92 K/mm3 (0.9-3.2); Mean Corpuscular HGB Conc 31.7 g/dl (32-36); Mean Corpuscular Hemoglobin 24.5 pg (26-34); Mean Corpuscular Volume 77.3 fl (80-100); Mean Platelet Volume 11.3 fl (7.4-10.4); Monocytes Absolute Auto 0.9 K/mm3 (0.1-0.6); Monocytes Percent Auto 11.1 % (2.6-8.5); Neutrophils Absolute Auto 4.5 K/mm3 (1.3-6.7); Neutrophils Percent Auto 58.6 % (45.5-73.1); Platelet Count Result 296 k/mm3 (150-375); Red Blood Count 4.32 M/mm3 (4.6-6.20); Red Cell Distribution Width 16.1 % (11.5-14.5); White Blood Count 7.7 K/mm3 (4.5-10.0)
[2020-09-05 08:15] LABS: Anion Gap 5 mmol/L (8-16); Blood Urea Nitrogen 25 mg/dL (9-20); Calcium 8.8 mg/dL (8.4-10.2); Carbon Dioxide 30 mmol/L (22-30); Chloride 103 mmol/L (98-107); Estimated CRCL calculation 81 ml/min; Estimated Glomerular Filt Rate > 60; Glucose 126 mg/dL (75-110); Potassium 4.4 mmol/L (3.4-5.0); Sodium 138 mmol/L (137-145)
[2020-09-05] MEDS: ONDANSETRON HCL ODT 4 MG TABLET PO (09:07)
[2020-09-05] MEDS: ATORVASTATIN 40 MG TABLET 80 MG PO (09:10)
[2020-09-05] MEDS: FUROSEMIDE 20 MG TABLET 60 MG PO (09:10)
[2020-09-05] MEDS: CLOPIDOGREL BISULFATE 75 MG TABLET PO (09:10)
[2020-09-05] MEDS: FAMOTIDINE 20 MG TABLET PO (09:10)
[2020-09-05] MEDS: ISOSORBIDE DINITRATE 10 MG TABLET PO ×2 (09:10→17:11)
[2020-09-05] MEDS: ASPIRIN 81 MG ENTERIC TABLET PO (09:10)
[2020-09-05 09:11] VITALS: PULSE 82
[2020-09-05] MEDS: METOPROLOL TARTRATE 50 MG TAB PO ×2 (09:11)
[2020-09-05] MEDS: SPIRONOLACTONE 25 MG TABLET PO (09:11)
[2020-09-05] MEDS: EUCERIN CREAM 120 GM JAR 1 APPLIC TOPICAL ×2 (09:11→21:23)
[2020-09-05] MEDS: TOLNAFTATE 1% POWDER 45 GM BTL 1 APPLIC TOPICAL ×2 (09:12→21:23)
[2020-09-05] MEDS: ACETAMINOPHEN 325 MG TABLET 650 MG PO ×2 (09:14→15:54)
--- NOTE | 2020-09-05 09:30 | WPDNEURORHBP ---
Subjective Date/time seen: 09/05/20 09:30 Interval history: Patient is doing well. Patient voices no complaint. has been in for caregiver training. Patient and feeling prepared for discharge Patient needs constant reminders to not rub right eye. Review of Systems Review of Systems: All systems reviewed & are unremarkable except as noted in HPI and below Functional Status Transfers Ability Ability to Transfer In/Out of Chair: Maximum Assistance X 2 Exam Narrative: Exam Narrative: Right eye reveals no redness is morning. Speech is fluent. Heart rate and rhythm is regular. Lungs are clear to auscultation. Overall mobility is markedly improving. Bed mobility is independent. Transfers are standby assistance with sliding board. No gait has been attempted. Grooming and hygiene are modified independent. Dressing in bed requires minimal assistance to the lower extremities. Bathing in bed is minimal assistance to the lower extremities. Toileting is max assistance patient cannot perform clothing management. Patient performs a slide board transfer to a drop-arm commode for toileting at a contact guard level. was in for training and did well. Objective Data Vital Signs Vital Signs: Vital Signs - 24 hr 09/04/20 14:00 09/04/20 20:58 09/04/20 22:00 Temperature 36.7 C 36.6 C Pulse Rate 78 66 76 Respiratory Rate 18 Blood Pressure 97/58 L 132/66 Pulse Oximetry 100 100 09/05/20 06:00 09/05/20 09:11 Temperature 36.3 C L Pulse Rate 82 82 Respiratory Rate 18 Blood Pressure 132/72 Pulse Oximetry 98 Intake/Output Intake/Output: Intake & Output 09/02/20 09/03/20 09/04/20 09/05/20 23:59 23:59 23:59 23:59 Intake Total 1440 1070 1440 240 Balance 1440 1070 1440 240 Meds/Results Medications: Active Medications Generic Name Dose Route Start Last Admin Trade Name Freq PRN Reason Stop Dose Admin Acetaminophen 650 mg 08/21/20 14:06 09/05/20 09:14 Acetaminophen 325 Mg Tablet PO 650 mg Q6H PRN Administration Fever Or Pain Hydrocodone Bitart/Acetaminophen 2 tab 08/21/20 14:06 09/05/20 02:20 Hydrocodone/Acetaminophen (*Crx) 5-325 Mg Tablet PO 2 tab Q4H PRN Administration Pain Rated 7-10 Hydrocodone Bitart/Acetaminophen 1 tab 08/29/20 09:13 09/04/20 01:55 Hydrocodone/Acetaminophen (*Crx) 5-325 Mg Tablet PO 1 tab Q4H PRN Administration Pain Rated 4-6 Artificial Tears 1 drop 08/27/20 13:00 09/05/20 09:09 Artificial Tears Op Soln 15 Ml Bottle EACH EYE 1 drop QID [facility] Administration Aspirin 81 mg 08/22/20 09:00 09/05/20 09:10 Aspirin 81 Mg Enteric Tablet PO 81 mg DAILY [facility] Administration Atorvastatin Calcium 80 mg 08/22/20 09:00 09/05/20 09:10 Atorvastatin 40 Mg Tablet PO 80 mg DAILY [facility] Administration Benzonatate 100 mg 08/21/20 14:06 Benzonatate 100 Mg Capsule PO Q8H PRN Cough Bisacodyl 10 mg 08/21/20 14:06 08/29/20 12:56 Bisacodyl 5 Mg Tablet Ec PO 10 mg DAILY PRN Administration Constipation Clopidogrel Bisulfate 75 mg 08/22/20 09:00 09/05/20 09:10 Clopidogrel Bisulfate 75 Mg Tablet PO 75 mg DAILY [facility] Administration Dextrose 12.5 gm 08/21/20 14:07 Dextrose 50% 25 Gm/50 Ml Syringe IV PUSH PRN PRN Hypoglycemia Protocol Docusate Sodium 100 mg 08/21/20 14:06 Docusate Sodium 100 Mg Capsule PO Q12H PRN Constipation Famotidine 20 mg 08/22/20 09:00 09/05/20 09:10 Famotidine 20 Mg Tablet PO 20 mg DAILY [facility] Administration Furosemide 60 mg 08/24/20 09:00 09/05/20 09:10 Furosemide 20 Mg Tablet PO 60 mg DAILY [facility] Administration Glucagon 1 mg 08/21/20 14:07 Glucagon For Inj 1 Mg Vial IM PRN PRN Hypoglycemia Protocol Glucose 15 gm 08/21/20 14:07 Glucose Oral Gel 15 Gm Of Glucse In 37.5 Gm Tube PO PRN PRN Hypoglycemia Protocol Dextrose 1,000 mls @ 100 mls/hr 08/21/20 14
[2020-09-05 11:55] LABS: Glucose Point of Care 148 (65-105)
--- NOTE | 2020-09-05 13:06 | PCDIET ---
Nutrition Follow-Up Complete: Nutrition Diagnosis: Increased protein needs related to wound as evidenced by right below the knee amputation. Nutrition Goal: Patient to consume 75% or more of meals on current diet. Goal met. Patient consuming 100% of meals on diabetic diet and reports good appetite. Last recorded weight is 111.5 kg. Recommend obtaining new weight. Bowel Motility: BM x 1 on 09/04/20. Labs Reviewed: Hgb (10.6), Hct (33.4), Glu (126), BUN (25) Meds Noted: Lopressor, Aldactone, [place], Lipitor, Plavix, Pepcid, Lasix, Novolog 70/30, Lisinopril Additional Notes: Left heel with deep tissue area; wound nurse following. Will continue to monitor with same goal. Nutrition Monitoring and Evaluation: Follow up in 7 days.
[2020-09-05 14:00] VITALS: BP 127/70; PULSE 69; RESP 18; TEMP 36.2; O2SAT 99
[2020-09-05 18:13] LABS: Glucose Point of Care 188 (65-105)
[2020-09-05 21:10] VITALS: PULSE 77; RESP 18; O2SAT 100
[2020-09-05] MEDS: lisinopriL 5 MG TABLET PO (21:20)
[2020-09-05] MEDS: PREGABALIN (*CRX) 75 MG CAPSULE 150 MG PO (21:22)
[2020-09-05 22:00] VITALS: BP 125/68; PULSE 77; RESP 18; TEMP 36.3; O2SAT 100
[2020-09-05 22:10] LABS: Glucose Point of Care 164 (65-105)
[2020-09-06 05:50] VITALS: BP 151/85; PULSE 93; RESP 16; TEMP 35.9; O2SAT 97
[2020-09-06 06:33] LABS: Glucose Point of Care 99 (65-105)
[2020-09-06] MEDS: EUCERIN CREAM 120 GM JAR 1 APPLIC TOPICAL ×2 (08:46→20:34)
[2020-09-06] MEDS: ATORVASTATIN 40 MG TABLET 80 MG PO (08:46)
[2020-09-06] MEDS: ISOSORBIDE DINITRATE 10 MG TABLET PO ×2 (08:46→17:21)
[2020-09-06 08:47] VITALS: PULSE 90
[2020-09-06] MEDS: TOLNAFTATE 1% POWDER 45 GM BTL 1 APPLIC TOPICAL ×2 (08:47→20:34)
[2020-09-06] MEDS: SPIRONOLACTONE 25 MG TABLET PO (08:47)
[2020-09-06] MEDS: ASPIRIN 81 MG ENTERIC TABLET PO (08:47)
[2020-09-06] MEDS: FUROSEMIDE 20 MG TABLET 60 MG PO (08:47)
[2020-09-06] MEDS: METOPROLOL TARTRATE 50 MG TAB PO ×2 (08:47→20:32)
[2020-09-06] MEDS: FAMOTIDINE 20 MG TABLET PO (08:47)
[2020-09-06] MEDS: CLOPIDOGREL BISULFATE 75 MG TABLET PO (08:47)
[2020-09-06] MEDS: ACETAMINOPHEN 325 MG TABLET 650 MG PO (08:55)
[2020-09-06 12:10] LABS: Glucose Point of Care 93 (65-105)
[2020-09-06 14:00] VITALS: BP 99/54; PULSE 79; RESP 20; TEMP 36.5; O2SAT 100
--- NOTE | 2020-09-06 14:59 | WPDNEURORHBP ---
Subjective Date/time seen: 09/06/20 14:59 Interval history: Patient is doing well. Patient voices no complaint. has been in for caregiver training. Patient and feeling prepared for discharge Patient needs constant reminders to not rub right eye. Patient in good spirits Review of Systems Review of Systems: All systems reviewed & are unremarkable except as noted in HPI and below Functional Status Transfers Ability Ability to Transfer In/Out of Chair: Maximum Assistance X 2 Exam Narrative: Exam Narrative: Right eye reveals no redness is morning. Speech is fluent. Heart rate and rhythm is regular. Lungs are clear to auscultation. Overall mobility is markedly improving. Bed mobility is independent. Transfers are standby assistance with sliding board. No gait has been attempted. was in for training and did well. Objective Data Vital Signs Vital Signs: Vital Signs - 24 hr 09/05/20 21:10 09/05/20 22:00 09/06/20 05:50 Temperature 36.3 C L 35.9 C L Pulse Rate 77 77 93 Respiratory Rate 18 18 16 Blood Pressure 125/68 151/85 H Pulse Oximetry 100 100 97 09/06/20 08:47 09/06/20 14:00 Temperature 36.5 C Pulse Rate 90 79 Respiratory Rate 20 Blood Pressure 99/54 L Pulse Oximetry 100 Intake/Output Intake/Output: Intake & Output 09/03/20 09/04/20 09/05/20 09/06/20 23:59 23:59 23:59 23:59 Intake Total 1070 1440 720 480 Balance 1070 1440 720 480 Meds/Results Medications: Active Medications Generic Name Dose Route Start Last Admin Trade Name Freq PRN Reason Stop Dose Admin Acetaminophen 650 mg 08/21/20 14:06 09/06/20 08:55 Acetaminophen 325 Mg Tablet PO 650 mg Q6H PRN Administration Fever Or Pain Hydrocodone Bitart/Acetaminophen 2 tab 08/21/20 14:06 09/05/20 21:15 Hydrocodone/Acetaminophen (*Crx) 5-325 Mg Tablet PO 2 tab Q4H PRN Administration Pain Rated 7-10 Hydrocodone Bitart/Acetaminophen 1 tab 08/29/20 09:13 09/04/20 01:55 Hydrocodone/Acetaminophen (*Crx) 5-325 Mg Tablet PO 1 tab Q4H PRN Administration Pain Rated 4-6 Artificial Tears 1 drop 08/27/20 13:00 09/06/20 08:46 Artificial Tears Op Soln 15 Ml Bottle EACH EYE 1 drop QID [facility] Administration Aspirin 81 mg 08/22/20 09:00 09/06/20 08:47 Aspirin 81 Mg Enteric Tablet PO 81 mg DAILY [facility] Administration Atorvastatin Calcium 80 mg 08/22/20 09:00 09/06/20 08:46 Atorvastatin 40 Mg Tablet PO 80 mg DAILY [facility] Administration Benzonatate 100 mg 08/21/20 14:06 Benzonatate 100 Mg Capsule PO Q8H PRN Cough Bisacodyl 10 mg 08/21/20 14:06 08/29/20 12:56 Bisacodyl 5 Mg Tablet Ec PO 10 mg DAILY PRN Administration Constipation Clopidogrel Bisulfate 75 mg 08/22/20 09:00 09/06/20 08:47 Clopidogrel Bisulfate 75 Mg Tablet PO 75 mg DAILY [facility] Administration Dextrose 12.5 gm 08/21/20 14:07 Dextrose 50% 25 Gm/50 Ml Syringe IV PUSH PRN PRN Hypoglycemia Protocol Docusate Sodium 100 mg 08/21/20 14:06 Docusate Sodium 100 Mg Capsule PO Q12H PRN Constipation Famotidine 20 mg 08/22/20 09:00 09/06/20 08:47 Famotidine 20 Mg Tablet PO 20 mg DAILY [facility] Administration Furosemide 60 mg 08/24/20 09:00 09/06/20 08:47 Furosemide 20 Mg Tablet PO 60 mg DAILY [facility] Administration Glucagon 1 mg 08/21/20 14:07 Glucagon For Inj 1 Mg Vial IM PRN PRN Hypoglycemia Protocol Glucose 15 gm 08/21/20 14:07 Glucose Oral Gel 15 Gm Of Glucse In 37.5 Gm Tube PO PRN PRN Hypoglycemia Protocol Dextrose 1,000 mls @ 100 mls/hr 08/21/20 14:07 Dextrose 5% 1,000 Ml IVPB PRN PRN Hypoglycemia Protocol Insulin Aspart 4 - 8 units 08/21/20 17:00 09/06/20 12:17 Insulin Aspart (*Bkc) 100 Units/Ml SUB-Q Not Given TIDWM [facility] Protocol Insulin Aspart 22 units 09/02/20 17:00 09/06/20 08:47 Insuln Asp Prt/Insulin Aspart 100 Units/
[2020-09-06 17:02] LABS: Glucose Point of Care 189 (65-105)
[2020-09-06 19:40] VITALS: BP 134/68; PULSE 84; RESP 18; TEMP 36.4; O2SAT 99
[2020-09-06 20:26] LABS: Glucose Point of Care 252 (65-105)
[2020-09-06] MEDS: HYDROcodone/acetaminophen (*CRX) 5-325 MG TABLET 2 TAB PO (20:30)
[2020-09-06 20:32] VITALS: PULSE 78
[2020-09-06] MEDS: lisinopriL 5 MG TABLET PO (20:32)
[2020-09-06] MEDS: PREGABALIN (*CRX) 75 MG CAPSULE 150 MG PO (20:32)
[2020-09-07] MEDS: HYDROcodone/acetaminophen (*CRX) 5-325 MG TABLET 2 TAB PO (01:55)
[2020-09-07 05:12] LABS: Basophils Percent Auto 0.5 % (0.2-1.2); Eosinophils Absolute Auto 0.3 K/mm3 (0-0.3); Eosinophils Percent Auto 3.8 % (0-4.4); Hematocrit 32.4 % (42.0-52.0); Hemoglobin 10.1 g/dL (14.0-18.0); Immature Granulocyte Absolute 0.03 K/mm3 (0.00-0.031); Immature Granulocyte Percent A 0.4 % (0-0.5); Lymphocytes Absolute Auto 1.71 K/mm3 (0.9-3.2); Lymphocytes Percent Auto 22.4 % (18.3-44.2); Mean Corpuscular HGB Conc 31.2 g/dl (32-36); Mean Corpuscular Hemoglobin 24.6 pg (26-34); Mean Corpuscular Volume 78.8 fl (80-100); Mean Platelet Volume 11.2 fl (7.4-10.4); Monocytes Percent Auto 12.4 % (2.6-8.5); Neutrophils Absolute Auto 4.6 K/mm3 (1.3-6.7); Neutrophils Percent Auto 60.5 % (45.5-73.1); Platelet Count Result 267 k/mm3 (150-375); Red Blood Count 4.11 M/mm3 (4.6-6.20); Red Cell Distribution Width 16.1 % (11.5-14.5); White Blood Count 7.7 K/mm3 (4.5-10.0)
[2020-09-07 05:30] VITALS: BP 113/62; PULSE 77; RESP 16; TEMP 36.3; O2SAT 97
[2020-09-07 05:36] LABS: Anion Gap 6 mmol/L (8-16); Blood Urea Nitrogen 28 mg/dL (9-20); Calcium 8.7 mg/dL (8.4-10.2); Carbon Dioxide 31 mmol/L (22-30); Chloride 102 mmol/L (98-107); Estimated CRCL calculation 68 ml/min; Estimated Glomerular Filt Rate > 60; Glucose 106 mg/dL (75-110); Sodium 139 mmol/L (137-145)
[2020-09-07 05:51] VITALS: BP 113/62; PULSE 16; RESP 16; TEMP 36.5; O2SAT 97
[2020-09-07 06:55] VITALS: PULSE 77
[2020-09-07 07:09] LABS: Glucose Point of Care 94 (65-105)
[2020-09-07 08:59] VITALS: PULSE 78
[2020-09-07] MEDS: SPIRONOLACTONE 25 MG TABLET PO (08:59)
[2020-09-07] MEDS: CLOPIDOGREL BISULFATE 75 MG TABLET PO (08:59)
[2020-09-07] MEDS: METOPROLOL TARTRATE 50 MG TAB PO (08:59)
[2020-09-07] MEDS: FAMOTIDINE 20 MG TABLET PO (09:00)
[2020-09-07] MEDS: EUCERIN CREAM 120 GM JAR 1 APPLIC TOPICAL (09:00)
[2020-09-07] MEDS: FUROSEMIDE 20 MG TABLET 60 MG PO (09:00)
[2020-09-07] MEDS: ISOSORBIDE DINITRATE 10 MG TABLET PO (09:00)
[2020-09-07] MEDS: TOLNAFTATE 1% POWDER 45 GM BTL 1 APPLIC TOPICAL (09:00)
[2020-09-07] MEDS: ASPIRIN 81 MG ENTERIC TABLET PO (09:00)
[2020-09-07] MEDS: ATORVASTATIN 40 MG TABLET 80 MG PO (09:00)
[2020-09-07] MEDS: ACETAMINOPHEN 325 MG TABLET 650 MG PO (09:08)
[2020-09-07 11:06] LABS: Glucose Point of Care 144 (65-105)
--- NOTE | 2020-09-07 12:29 | PM.DS ---
DS: Admitting Diagnosis Admitting Diagnosis Admitting Diagnosis: R BKA DS: Discharge Diagnosis Discharge Diagnosis (1) Above knee amputation of left lower extremity: Code(s): S78.112A - Complete traumatic amputation at level between left hip and knee, initial encounter Status: Acute (2) Blurred vision: Code(s): H53.8 - Other visual disturbances Status: Acute (3) Hypotension: Code(s): I95.9 - Hypotension, unspecified Status: Acute (4) Bowel incontinence: Code(s): R15.9 - Full incontinence of feces Status: Acute (5) Rash: Code(s): R21 - Rash and other nonspecific skin eruption Status: Acute (6) Postural hypotension: Code(s): I95.1 - Orthostatic hypotension Status: Acute (7) Diabetic peripheral neuropathy: Code(s): E11.42 - Type 2 diabetes mellitus with diabetic polyneuropathy Status: Acute (8) Type 2 diabetes mellitus with hyperglycemia: Code(s): E11.65 - Type 2 diabetes mellitus with hyperglycemia Status: Acute (9) Essential (primary) hypertension: Code(s): I10 - Essential (primary) hypertension Status: Acute (10) Mitral valve regurgitation: Code(s): I34.0 - Nonrheumatic mitral (valve) insufficiency Status: Acute (11) Acute kidney injury superimposed on chronic kidney disease: Code(s): N17.9 - Acute kidney failure, unspecified; N18.9 - Chronic kidney disease, unspecified Status: Acute (12) Rheumatoid arthritis: Code(s): M06.9 - Rheumatoid arthritis, unspecified Status: Acute (13) Osteoarthritis: Code(s): M19.90 - Unspecified osteoarthritis, unspecified site Status: Acute (14) BPH (benign prostatic hyperplasia): Code(s): N40.0 - Benign prostatic hyperplasia without lower urinary tract symptoms Status: Acute (15) Hepatitis: Code(s): K75.9 - Inflammatory liver disease, unspecified Status: Acute (16) Scrotal edema: Code(s): N50.89 - Other specified disorders of the male genital organs Status: Acute (17) Cardiac defibrillator in place: Code(s): Z95.810 - Presence of automatic (implantable) cardiac defibrillator Status: Acute (18) Hypertension: Code(s): I10 - Essential (primary) hypertension Status: Acute (19) Asthma: Code(s): J45.909 - Unspecified asthma, uncomplicated Status: Acute (20) Body mass index [BMI] 36.0-36.9, adult: Onset Date: 12/01/17 Code(s): Z68.36 - Body mass index [BMI] 36.0-36.9, adult Status: Acute (21) COPD (chronic obstructive pulmonary disease): Code(s): J44.9 - Chronic obstructive pulmonary disease, unspecified Status: Acute (22) Systolic heart failure: Code(s): I50.20 - Unspecified systolic (congestive) heart failure Status: Acute (23) Coronary artery disease: Code(s): I25.10 - Atherosclerotic heart disease of [place] coronary artery without angina pectoris Status: Acute (24) CKD stage 3 due to type 2 diabetes mellitus: Code(s): E11.22 - Type 2 diabetes mellitus with diabetic chronic kidney disease; N18.30 - Chronic kidney disease, stage 3 unspecified Status: Acute (25) Chronic kidney disease, stage III (moderate): Code(s): N18.30 - Chronic kidney disease, stage 3 unspecified Status: Acute (26) Neuropathy associated with endocrine disorder: Code(s): E34.9 - Endocrine disorder, unspecified; G63 - Polyneuropathy in diseases classified elsewhere Status: Acute (27) Pure hypercholesterolemia: Code(s): E78.00 - Pure hypercholesterolemia, unspecified Status: Acute DS: Summary Hospital Course Hospital Course: The patient's primary rehab impairment category is amputation lower extremity The etiologic diagnosis is right lower extremity Charcot foot with nonhealing wound status post right below the knee amputation I saw this patient face-to-fac
== END 2020-09-07 14:11 | disposition home health service (06) | DRG 560 ==
PROVIDERS: Admitting Provider Physical Medicine & Rehabilitation; PCP Family Medicine; Visit Provider Physical Medicine & Rehabilitation
DX: Z47.81 Encounter for orthopedic aftercare following surgical amputation (principal); I13.0 Hypertensive heart and chronic kidney disease with heart failure and stage 1 through stage 4 chronic kidney disease, or unspecified chronic kidney disease; I50.20 Unspecified systolic (congestive) heart failure; D62 Acute posthemorrhagic anemia; Z89.511 Acquired absence of right leg below knee; E11.22 Type 2 diabetes mellitus with diabetic chronic kidney disease; E11.65 Type 2 diabetes mellitus with hyperglycemia; E11.51 Type 2 diabetes mellitus with diabetic peripheral angiopathy without gangrene; E11.42 Type 2 diabetes mellitus with diabetic polyneuropathy; E11.610 Type 2 diabetes mellitus with diabetic neuropathic arthropathy; E11.319 Type 2 diabetes mellitus with unspecified diabetic retinopathy without macular edema; E78.5 Hyperlipidemia, unspecified; E66.9 Obesity, unspecified; G47.33 Obstructive sleep apnea (adult) (pediatric); G54.6 Phantom limb syndrome with pain; H53.8 Other visual disturbances; H02.401 Unspecified ptosis of right eyelid; I95.9 Hypotension, unspecified; I25.10 Atherosclerotic heart disease of native coronary artery without angina pectoris; J44.9 Chronic obstructive pulmonary disease, unspecified; M06.9 Rheumatoid arthritis, unspecified; M19.031 Primary osteoarthritis, right wrist; N18.30 Chronic kidney disease, stage 3 unspecified; N50.89 Other specified disorders of the male genital organs; N40.0 Benign prostatic hyperplasia without lower urinary tract symptoms; R42 Dizziness and giddiness; R15.9 Full incontinence of feces; R60.0 Localized edema; Z95.1 Presence of aortocoronary bypass graft; Z95.810 Presence of automatic (implantable) cardiac defibrillator; Z68.36 Body mass index [BMI] 36.0-36.9, adult; Z79.4 Long term (current) use of insulin
CPT/HCPCS: 36415; 70450; 73100; 74018; 80048; 80053; 82607; 82747; 82948; 84132; 85025; 92507; 92523; 97110; 97162; 97166; 97530; 97535; 97542; A9270; J1644; J1815